=== PATIENT | male | born 1980 | race Two or more races ===

== ENCOUNTER 2019-12-25 09:11 | Outpatient (REF) | payer OTHER, SELFPAY ==
--- NOTE | 2019-12-25 09:51 | ECG_ITS ---
Test Reason : CHEST WALL PAIN Blood Pressure : / mmHG Vent. Rate : 068 BPM Atrial Rate : 068 BPM P-R Int : 146 ms QRS Dur : 102 ms QT Int : 402 ms P-R-T Axes : 057 038 001 degrees QTc Int : 427 ms Normal sinus rhythm with sinus arrhythmia Intra-ventricular conduction delay Nonspecific T wave abnormality Inferior leads Low voltage QRS Abnormal ECG When compared with ECG of 28-FEB-2018 07:43, No significant change was found Referred By: Dawn Kumar Electronically Signed By:GRACE AGUILAR MD
[2019-12-25 10:18] LABS: MANUAL DIFF FLAG NO
[2019-12-25 10:24] LABS: Basophils Percent Auto 0.3 % (0-2); Hematocrit 49.9 % (42-52); Hemoglobin 16.3 g/dl (14.0-18.0); Imm Gran Abs Auto 0.02 X10*3/uL (0.00-0.03); Imm Gran Pct Auto 0.3 % (0.0-0.4); Lymphocytes Absolute Auto 2.7 X10*3/uL (1.2-4.9); Lymphocytes Percent Auto 35.9 % (20-40); Mean Corpuscular HGB Conc 32.7 g/dl (31.0-36.0); Mean Corpuscular Hemoglobin 27.7 pg (27.0-33.0); Mean Corpuscular Volume 84.9 fL (80-98); Mean Platelet Volume 11.1 fL (9.4-12.4); Monocytes Absolute Auto 0.8 X10*3/uL (0.1-1.2); Monocytes Percent Auto 10.2 % (2-11); Neutrophils Percent Auto 53.3 % (45-73); Platelet Count 187 X10*3/uL (160-400); Red Blood Count 5.88 X10*6/uL (4.60-5.80); White Blood Count 7.6 X10*3/uL (4.8-10.8)
[2019-12-25 11:02] LABS: Anion Gap 11 (12-20); Blood Urea Nitrogen 13 mg/dL (9-16); Calcium 9.5 mg/dL (8.4-10.2); Carbon Dioxide 28 mmol/L (22-29); Chloride 103 mmol/L (96-108); Cholesterol 199 mg/dL; Estimated Glomerular Filt Rate > 60; Glucose Fasting 107 mg/dL (60-99); HDL Cholesterol 42 mg/dL; LDL Cholesterol Calculated 125 mg/dl; Potassium 4.2 mmol/l (3.3-5.1); Sodium 138 mmol/L (135-145); Triglycerides 160 mg/dL
== END 2019-12-25 09:12 | disposition home or self-care (01) ==
LOC: HO.LAB 09:11
PROVIDERS: Nurse Practitioner Family; Visit Provider Internal Medicine
DX: E78.2 Mixed hyperlipidemia (principal); R07.89 Other chest pain
CPT/HCPCS: 36415; 80048; 80061; 85025; 93005

== ENCOUNTER → 2019-12-27 08:06 | Outpatient (BNVA) | payer OTHER, SELFPAY | PROVIDERS: PCP Internal Medicine; Visit Provider Internal Medicine | DX: R07.2 Precordial pain (principal); E66.01 Morbid (severe) obesity due to excess calories; Z68.41 Body mass index [BMI] 40.0-44.9, adult | CPT/HCPCS: 99202 ==

== ENCOUNTER → 2020-01-09 09:39 | Outpatient (REF) | payer OTHER, SELFPAY ==
--- NOTE | 2020-01-09 09:47 | CA_ITS ---
Acquisition Time: 2020-01-09 10:55:11 Total Exercise Time: 00:08:53 Test Indications: cp Medications: see chart Protocol: VINCENT Max HR: 173 BPM 96% of Pred: 180 BPM Max BP: 170/090 mmHG Max Work Load: 10.1 METS Exercise stress ECHO using Vincent protocol total of 8 min 53 sec. METS 10.1. THR up to 96%. Tolerated well, denies any anginal sx. EKG without any arrhythmias, no ischemic changes noted. ECHO images obtained at rest and immediately at peak exercise. Definity contrast used. Normotensive response to exercise. Referred By: Ki Pelaez Overread By: Savanna Morfin
--- NOTE | 2020-01-09 09:47 | CA_ITS ---
Transthoracic Echocardiogram Patient (Last, First, Middle): Vinicio Gregory L Gender: Male Date of : 1980 Age: 39 Procedure Date: 01/09/2020 Procedure Type: Transthoracic Echocardiogram Location: OP Height: 177.8 cm Weight: 138.8 kg BSA: 2.50 m2 Heart Rate: bpm BP: 138 / 80 mmHg Molder Operator: Referring MD: Ki Pelaez MD Book Canvasser: Bennett Reina MD Symptoms: R07.2 - Precordial pain Study Quality: Fair ECG Rhythm: Sinus Conclusions: - Essentially normal study Findings Left Ventricle Normal left ventricular size and systolic function. There is mildly increased left ventricular wall thickness. The visually estimated ejection fraction is between 60-65%. Diastolic function is normal for age. Right Ventricle Normal right ventricular cavity size and systolic function. Atria The left atrium is likely dilated. There is no evidence of interatrial shunt. The right atrium is normal in size. Aortic Valve Normal aortic valve structure and function. There is no aortic valve stenosis. There is no aortic valve regurgitation. Mitral Valve Normal mitral valve structure and function. There is trace mitral valve regurgitation. There is no mitral valve stenosis. Pulmonic Valve The pulmonic valve was not well visualized. Tricuspid Valve Normal tricuspid valve structure. There is trace tricuspid valve regurgitation. The right ventricular systolic pressure is normal. The right ventricular systolic pressure is 18 mmHg. Normal right atrial pressure. There is no evidence of pulmonary hypertension. Great Vessels All visible segments of the aorta are normal in size. The pulmonary artery was not well visualized. Venous The inferior vena cava is normal in size and collapses greater than 50% with inspiration. Pericardium/Pleural There is no evidence of pericardial effusion. Prior Study Comparison No change compared to prior study dated: 11/23/2016. Measurements 2D Linear Measurements IVSd: 1.21 0.6-0.9/0.6-1.0 cm LVIDd: 4.41 3.9-5.3/4.2-5.9 cm LVIDd Index: 1.76 2.4-3.2/2.2-3.1 cm/m2 LVIDs: 2.53 2.0-3.6 cm LVPWd: 1.20 0.7-1.1 cm Ao Root: 3.00 2.1-3.5 cm LA Diam: 3.80 2.7-3.8/3.0-4.0 cm LAIDs Index: 1.52 1.5-2.3 cm/m2 LV Mass: 240.71 67-162/88-224 g LV Mass Index: 96.28 43-95/49-115 g/m2 LVOT Diam: 2.20 3.0+(-)1.3 cm Mitral Valve MV Pk E: 0.78 MV PK A: 0.47 MV Decel Time: 162.00 E/A: 1.60 E'Lateral: 18.80 E'Medial: 10.30 E/E' Med: 7.50 E/E' Lat: 4.10 PHT: 47.00 MVA PHT: 4.68 Decel [place]: 4.79 Aortic Valve AoV Pk Rob: 1.38 AoV Mn Rob: 0.93 AoV VTI: 0.27 AoV Pk Grad: 8.00 Aov Mn Grad: 4.00 CHRIS Cont.VTI: 2.50 LVOT LVOT Pk Rob: 0.86 LVOT Mn Rob: 0.62 LVOT VTI: 0.17 LVOT Pk Grad: 3.00 LVOT Mn Grad: 2.00 LVOT Diam: 2.20 LVOT Area: 3.80 Diastolic Function MV Pk E: 0.78 MV Pk A: 0.47 E/A: 1.60 E'Medial: 10.30 E/E' Med: 7.50 E' Laterial: 18.80 E/E' Lat: 4.10 Tricuspid Valve TR Pk Rob: 1.94 TR Pk Grad: 15.00 RA Press: 3.00 RVSP: 18.00 Great Vessels Aorta Ao Root-2D: 3.00 2.0-3.7 cm Ao Asc: 3.20 2.1-3.4 cm Pulmonary Valve PV Pk Rob: 1.21 Peak PV Grad: 6.00 Updated in Other Vendor System with Status of Final Bennett Reina MD electronically signed on 01/10/2020 12:24:54 PM with status of Final
== END ==
LOC: HO.CARD 09:39
PROVIDERS: PCP Internal Medicine; Visit Provider Internal Medicine
DX: R07.2 Precordial pain (principal)
CPT/HCPCS: 93306; 93350; Q9957

== ENCOUNTER 2020-01-12 08:05 | Outpatient (REF) | payer OTHER, SELFPAY ==
--- NOTE | 2020-01-12 08:15 | US_ITS ---
EXAMINATION: US VENOUS ULTRASOUND WITH DOPPLER LOWER EXTREMITY, BILATERAL CLINICAL INFORMATION: Right leg pain. COMPARISON: None TECHNIQUE: Ultrasound of the deep veins is performed from the hip to the calf with compression sonography and color and pulse Doppler assessment. Spectral analysis with color-flow imaging is performed. FINDINGS: RIGHT: There is normal venous compression and respiratory variation and augmented flow. The visualized common femoral vein, superficial femoral vein, profunda femoral vein, popliteal vein, and the trifurcation region shows no evidence of deep venous thrombosis. There is no significant popliteal fossa cyst. The subcutaneous soft tissues are unremarkable. LEFT: There is normal venous compression and respiratory variation and augmented flow. The visualized common femoral vein, superficial femoral vein, profunda femoral vein, popliteal vein, and the trifurcation region shows no evidence of deep venous thrombosis. There is no significant popliteal fossa cyst. The subcutaneous soft tissues are unremarkable. If the patient's symptoms persist, followup ultrasound in 5 days 7 days might be of value to exclude proximal propagation from a non-visualized calf vein. US/US venous duplex LE BI IMPRESSION: No DVT demonstrated in the bilateral lower extremities.
== END 2020-01-12 08:06 | disposition home or self-care (01) ==
LOC: HO.US 08:05
PROVIDERS: PCP Internal Medicine; Visit Provider Nurse Practitioner Family
DX: M79.604 Pain in right leg (principal); M79.605 Pain in left leg
CPT/HCPCS: 93970

== ENCOUNTER → 2020-01-22 13:59 | Outpatient (BNVA) | payer OTHER, SELFPAY | PROVIDERS: PCP Internal Medicine; Referring Provider Internal Medicine; Visit Provider Internal Medicine | DX: Z76.89 Persons encountering health services in other specified circumstances (principal) ==

== ENCOUNTER → 2020-03-11 10:38 | Outpatient (BNVA) | payer OTHER, SELFPAY | PROVIDERS: PCP Internal Medicine; Visit Provider Nurse Practitioner ==

== ENCOUNTER → 2020-08-26 10:50 | Outpatient (BNVA) | payer OTHER, SELFPAY | PROVIDERS: PCP Internal Medicine; Referring Provider Internal Medicine; Visit Provider Nurse Practitioner | DX: K80.20 Calculus of gallbladder without cholecystitis without obstruction (principal); K21.9 Gastro-esophageal reflux disease without esophagitis; E66.01 Morbid (severe) obesity due to excess calories | CPT/HCPCS: 99212 ==

== ENCOUNTER → 2020-10-10 09:19 | Outpatient (BNVA) | payer OTHER, SELFPAY | PROVIDERS: PCP Internal Medicine; Visit Provider Nurse Practitioner ==

== ENCOUNTER 2021-04-14 09:20 | Outpatient (REF) | payer OTHER, SELFPAY ==
[2021-04-14 09:58] LABS: MANUAL DIFF FLAG NO
[2021-04-14 10:27] LABS: Basophils Percent Auto 0.3 % (0-2); Hematocrit 47.7 % (42.0-52.0); Imm Gran Abs Auto 0.03 X10*3/uL (0.00-0.03); Imm Gran Pct Auto 0.4 % (0.0-0.4); Lymphocytes Absolute Auto 2.6 X10*3/uL (1.2-4.9); Lymphocytes Percent Auto 34.5 % (20-40); Mean Corpuscular HGB Conc 33.5 g/dl (31.0-36.0); Mean Corpuscular Hemoglobin 28.4 pg (27.0-33.0); Mean Corpuscular Volume 84.6 fL (80.0-98.0); Mean Platelet Volume 11.6 fL (9.4-12.4); Monocytes Absolute Auto 0.5 X10*3/uL (0.1-1.2); Monocytes Percent Auto 7.2 % (2-11); Neutrophils Absolute Auto 4.3 x10*3/uL (2.0-8.3); Neutrophils Percent Auto 57.6 % (45-73); Platelet Count 195 X10*3/uL (160-400); Red Blood Count 5.64 X10*6/uL (4.60-5.80); Red Cell Distribution Width 12.8 % (11.0-16.0); White Blood Count 7.5 X10*3/uL (4.8-10.8)
[2021-04-14 11:06] LABS: Alanine Aminotransferase 79 U/L (0-40); Albumin Level 4.3 g/dL (3.5-5.0); Alkaline Phosphatase 70 U/L (39-117); Anion Gap 13 (12-20); Aspartate Amino Transferase 50 U/L (5-37); Bilirubin Total 0.5 mg/dL (0.0-1.0); Blood Urea Nitrogen 13 mg/dL (9-16); Calcium 9.7 mg/dL (8.4-10.2); Carbon Dioxide 30 mmol/L (22-29); Chloride 102 mmol/L (96-108); Cholesterol 211 mg/dL; Estimated Glomerular Filt Rate > 60; Glucose Fasting 124 mg/dL (60-99); HDL Cholesterol 41 mg/dL; LDL Cholesterol Calculated 143 mg/dl; Potassium 4.4 mmol/L (3.3-5.1); Sodium 141 mmol/L (135-145); Total Protein 7.1 g/dL (6.5-8.0); Triglycerides 136 mg/dL
[2021-04-14 11:10] LABS: SARS COV2 IgG Positive (Negative); Thyroid Stimulating Hormone 1.44 uIU/mL (0.32-4.0)
[2021-04-18 13:35] LABS: Vitamin D 25-OH, D2 <4 ng/mL; Vitamin D 25-OH, D3 31 ng/mL; Vitamin D 25-OH, Total 31 ng/mL (30-100)
== END 2021-04-14 09:21 | disposition home or self-care (01) ==
LOC: HO.LAB 09:20
PROVIDERS: PCP Internal Medicine; Visit Provider Internal Medicine
DX: E66.01 Morbid (severe) obesity due to excess calories (principal); D64.9 Anemia, unspecified; E78.5 Hyperlipidemia, unspecified; E55.9 Vitamin D deficiency, unspecified
CPT/HCPCS: 36415; 80053; 80061; 82306; 84443; 85025; 86769

== ENCOUNTER → 2021-04-17 07:51 | Outpatient (BNVA) | payer OTHER, SELFPAY | PROVIDERS: PCP Internal Medicine; Referring Provider Internal Medicine; Visit Provider Nurse Practitioner | DX: K80.20 Calculus of gallbladder without cholecystitis without obstruction (principal); K21.9 Gastro-esophageal reflux disease without esophagitis; E66.01 Morbid (severe) obesity due to excess calories; Z68.42 Body mass index [BMI] 45.0-49.9, adult | CPT/HCPCS: 99212 ==

== ENCOUNTER 2021-09-16 09:54 | Outpatient (REF) | payer OTHER, SELFPAY ==
[2021-09-16 11:18] LABS: Alanine Aminotransferase 85 U/L (0-40); Albumin Level 4.2 g/dL (3.5-5.0); Alkaline Phosphatase 71 U/L (39-117); Anion Gap 15 (12-20); Aspartate Amino Transferase 54 U/L (5-37); Bilirubin Total 0.3 mg/dL (0.0-1.0); Blood Urea Nitrogen 14 mg/dL (9-16); Calcium 9.6 mg/dL (8.4-10.2); Carbon Dioxide 27 mmol/L (22-29); Chloride 104 mmol/L (96-108); Cholesterol 228 mg/dL; Estimated Glomerular Filt Rate > 60; Glucose Fasting 150 mg/dL (60-99); HDL Cholesterol 44 mg/dL; LDL Cholesterol Calculated 143 mg/dl; Potassium 4.8 mmol/L (3.3-5.1); Sodium 141 mmol/L (135-145); Total Protein 6.8 g/dL (6.5-8.0); Triglycerides 206 mg/dL
== END 2021-09-16 09:55 | disposition home or self-care (01) ==
LOC: HO.LAB 09:54
PROVIDERS: PCP Internal Medicine; Visit Provider Internal Medicine
DX: E78.5 Hyperlipidemia, unspecified (principal); E78.00 Pure hypercholesterolemia, unspecified
CPT/HCPCS: 36415; 80053; 80061

== ENCOUNTER 2023-02-10 08:30 | Outpatient (AMB) | payer OTHER, SELFPAY ==
--- NOTE | 2023-02-10 08:39 | A.OFFPC_ITS ---
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: No Accompanied by: Self / Same As Patient Allergies No Known Allergies [No Known Allergies*] Allergy (Verified 02/10/23 08:51) Medication List - Last Reconciled 02/10/23 by Dawn Kumar MD omeprazole 20 mg PO DAILY 30 days sertraline 25 mg PO DAILY 90 days Tobacco use date assessed: 07/16/22 Dental Screening Dental Screen Date: 02/10/23 Did you have a dental visit in the last 12 months?: No Did you have a dental problem in the last 6 months where you did not have access to dental care?: No Was dental information given to patient?: Patient has dentist HPI HPI Comments History of Present Illness Details This is a 42-year-old male with morbid obesity that comes for his physical exam. He is morbidly obese with a BMI of 47.1 and was advised to diet and exercise to reach BMI goal less than 30. He declines weight loss surgery. No chest pain or shortness of breath. [facility] Medical History Transaminitis Pure hypercholesterolemia Impaired glucose tolerance Morbid obesity Surgical History History of tooth extraction (~11/2014) Family History Father Hepatitis C Chronic liver failure Mother Renal failure Brother Alive and well Sister Alive and well Son Alive and well Family/Other Substance use disorder Social History Housing: House Alcohol intake: former Patient Tobacco Use Status: Former Tobacco user Tobacco use type: Cigarette e-Cigarette/Vaping Use: Never Used Second Hand Smoke Exposure: No service: No Current occupational status: employed Current occupational exposures/hazards: No Cognitive needs: No Hearing needs: No Vision needs: Yes Questionnaire Thrive Questionnaire Date Thrive assessed: 07/16/22 ZACK-7 AMB Questionnaire ZACK-7 Date ZACK - 7 assessed: 07/16/22 Source: Developed by Drs. Jag Gamez, Edda Grace, Sam Sotomayor and colleagues, with an educational tom from [employer]. Review of Systems Const All systems reviewed & are unremarkable except as noted in HPI and below Eyes Reports no additional complaints, Denies change in vision and Denies other visual disturbances Card Denies chest pain at rest, Denies chest pain with activity, Denies edema, Denies irregular heart rhythm, Denies claudication, Denies dyspnea, Denies dyspnea on exertion, Denies orthopnea, Denies paroxysmal nocturnal dyspnea and Denies slow heart rate Resp Denies cough, Denies dyspnea and Denies dyspnea on exertion GI Denies abdominal pain, Denies change in bowel habits, Denies excessive flatus, D enies nausea and Denies vomiting Denies urinary hesitancy, Denies urinary incontinence and Denies urinary urgency Musc Denies abnormal gait, Denies atrophy, Denies deformity and Denies limited range of motion Skin/Breast Denies bleeding lesions, Denies changing lesions and Denies rash Neuro Denies abnormal gait, Denies behavioral changes, Denies confusion and Denies lack of coordination Psych Denies behavioral changes and Denies confusion Physical exam (Primary Care) Vital Signs: Last Vital Signs BP 122/86 02/10/23 08:40 BMI result Body Mass Index 47.1 Tobacco/Smoking Status: Tobacco use Status Tobacco use date assessed 07/16/22 02/10/23 08:43 Patient Tobacco Use Status Former Tobacco user 02/10/23 08:43 Tobacco use type Cigarette 02/10/23 08:43 e-Cigarette/Vaping Use Never Used 02/10/23 08:43 Thrive Assessment: Date of Thrive Assessment Date Thrive assessed 07/16/22 02/10/23 08:43 Const General: No confusion Orientation/consciousness: patient oriented x3 and No confusion HENMT Head: Yes normal to inspection, Yes normocephalic and Yes atraumatic Ears: external ears normal Eyes General: appearance normal, both eyes and all related structures Eyelids: Yes eyelids normal Conjunctivae: conjunctivae normal Neck Neck: Yes normal visual inspection and Yes supple Resp Effort & Inspection: normal respiratory effort Auscultation: clear to auscultation bilaterally Cardio Jugular venous distension: no JVD Rate: regular rate Rhythm: regular rhythm Heart sounds: S1 normal heart sound present and S2 normal heart sound present GI Inspection: Yes normal to inspection Palpation (GI): Soft to palpation and nontender Auscultation: normal bowel sounds Skin General skin exam: no rashes or lesions noted Neuro General: patient oriented x3, no focal motor deficits and No confusion Extrem General: Yes full ROM Psych Appearance: grossly normal Office Procedures Flu Questionnaire Does the patient have a severe egg allergy?: No Immunizations flu vacc [id number] 6mos up(PF) 60 mcg(15 mcgx4)/0.5 mL IM syringe Performing Provider: Dawn Kumar MD Performing Location: [facility] Documented (not given) by: KAELA Schmid on 02/10/23 08:44 Reason Not Given: Patient Refused Assessment and Plan Assessment & Plan (1) Physical exam: Code(s): Z00.00 - Encounter for general adult medical examination without abnormal findings Plan: Repeat in a year. (2) Morbid obesity: Code(s): E66.01 - Morbid (severe) obesity due to excess calories Plan: Start diet and exercise. BMI goal is less than 30. Orders: Orders Comprehensive [place]. Panel Fast Today Z00.00 - Encounter for general adult medical examination without abnormal findings Influenza [id number] Immunization Today Z23 - Encounter for immunization Lipid Panel Today E78.5 - Hyperlipidemia, unspecified, Z00.00 - Encounter for general adult medical examination without abnormal findings Coding Level of Care Code Est Pt Prev Care 40-64y(92474) Diagnoses Physical exam Z00.00 Morbid obesity E66.01 Time Spent (min) 31
[2023-02-10 08:40] VITALS: BP 122/86; BMI 47.1
== END 2023-02-10 09:00 | disposition home or self-care (01) ==
PROVIDERS: Visit Provider Internal Medicine
DX: Z00.00 Encounter for general adult medical examination without abnormal findings (principal); E66.01 Morbid (severe) obesity due to excess calories; Z68.42 Body mass index [BMI] 45.0-49.9, adult
CPT/HCPCS: 99396

== ENCOUNTER 2023-03-12 23:59 | Emergency (ER) | payer OTHER, SELFPAY ==
[2023-03-13 00:02] VITALS: BP 143/81; PULSE 79; RESP 17; TEMP 36.3; O2SAT 96; BMI 48.0
[2023-03-13 00:26] LABS: Glucose, Whole Blood 303 mg/dL (60-115)
[2023-03-13 00:29] LABS: Hematocrit 44.1 % (42.0-52.0); Hemoglobin 15.1 g/dl (14.0-18.0); Mean Corpuscular HGB Conc 34.2 g/dl (31.0-36.0); Mean Corpuscular Hemoglobin 28.3 pg (27.0-33.0); Mean Corpuscular Volume 82.6 fL (80.0-98.0); Mean Platelet Volume 11.5 fL (9.4-12.4); Platelet Count 183 X10*3/uL (160-400); Red Blood Count 5.34 X10*6/uL (4.60-5.80); Red Cell Distribution Width 12.6 % (11.0-16.0); White Blood Count 8.6 X10*3/uL (4.8-10.8)
--- NOTE | 2023-03-13 00:34 | ED.GENADULT ---
HPI - General Adult General Chief complaint: General Medical Stated complaint: ?Hyperglycemia Time Seen by Provider: 03/13/23 00:34 Source: patient Mode of arrival: ambulatory Limitations: no limitations History of Present Illness HPI narrative: Patient with no significant past medical history has gained about 100 lb in last 1 year been feeling little bit after rechecked the blood sugar was 187, repeat 282 and just prior to arrival was 308 guarding 2 patient has been eating a lot lately no abdominal pain no nausea no vomiting no visual changes no family history of diabetes no recent prednisone use Related Data Previous Rx's Medication Instructions Recorded omeprazole 20 mg capsule,delayed 20 mg PO DAILY 30 days #30 caps 04/17/21 release sertraline 25 mg tablet 25 mg PO DAILY 90 days #90 tabs 12/28/22 blood-glucose meter #1 ea 03/13/23 metformin 500 mg tablet 500 mg PO BID #60 tabs 03/13/23 Allergies Allergy/AdvReac Type Severity Reaction Status Date / Time No Known Allergies Allergy Verified 03/13/23 00:01 [No Known Allergies*] Review of Systems Review of Systems: Yes all other systems are reviewed and are negative [facility] Past Medical History Medical History Transaminitis Pure hypercholesterolemia Impaired glucose tolerance Morbid obesity Surgical History History of tooth extraction (~11/2014) Family History Family History Father Hepatitis C Chronic liver failure Mother Renal failure Brother Alive and well Sister Alive and well Son Alive and well Family/Other Substance use disorder Social History Social History Housing: House Alcohol intake: former Patient Tobacco Use Status: Former Tobacco user Tobacco use type: Cigarette e-Cigarette/Vaping Use: Never Used Second Hand Smoke Exposure: No Advance Directives: No Advance Directives Information Provided: Yes service: No Current occupational status: employed Current occupational exposures/hazards: No Cognitive needs: No Hearing needs: No Vision needs: Yes Physical Exam ED Vital Signs: Vital Signs - 24 hr 03/13/23 00:02 Temperature 97.3 F Pulse Rate 79 Respiratory Rate 17 Blood Pressure 143/81 H Pulse Oximetry 96 Oxygen Delivery Method Room Air BMI result Body Mass Index 48.0 Appearance: Alert. Oriented X3. No acute distress. Obese Eyes: PERRLA, No Nystagmus ENT: Pharynx normal. Oral Mucosa moist Neck: Normal inspection. Neck supple. CVS: Normal heart rate and rhythm. Pulses normal. Respiratory: No respiratory distress. Equal air entry bilateral, no wheezing/rales/rhonchi Abdomen: Soft and nontender. Bowel sounds are present, Skin: Skin warm and dry. Normal skin color. Normal skin turgor. Extremities: No lower extremity edema.; Neuro: Oriented X 3. No motor deficit. Medications Administered Discontinued Medications Generic Name Dose Route Start Last Admin Trade Name Freq PRN Reason Stop Dose Admin Insulin Human Lispro 6 unit 03/13/23 00:43 03/13/23 01:03 Insulin Lispro 100 Unit/Ml 3 Ml Vial SUBCUT 03/13/23 00:44 6 unit ONCE ONE Administration Medical Decision Making Medical Decision Making [facility] Narrative: Patient with new onset diabetes blood sugar more than 300 started on metformin give insulin , patient been educated about diabetes , diet control and weight loss advised to follow with PCP Lab Data [facility] Lab Attestation statement: I reviewed the patient's lab results. 03/13/23 00:21 03/13/23 00:21 Labs: Lab Results 03/13/23 03/13/23 Range/Units 00:21 01:52 WBC 8.6 (4.8-10.8) X10*3/uL RBC 5.34 (4.60-5.80) X10*6/uL Hgb 15.1 (14.0-18.0) g/dl Hct 44.1 (42.0-52.0) % MCV 82.6 (80.0-98.0) fL MCH 28.3 (27.0-33.0) pg MCHC 34.2 (31.0-36.0) g/dl RDW 12.6 (11.0-16.0) % Plt Count 183 (160-400) X10*3/uL MPV 11.5 (9.4-12.4) fL Absolute Nucleated RBC 0.000 (0.0-0.012) X10*3/uL Nucleated RBC % (auto) 0.0 (0.0-0.2) /100WBC Sodium 137 (135-145) mmol/L Potassium 3.8 (3.3-5.1) mmol/L Chloride 101 (96-108) mmol/L Carbon Dioxide 27 (22-29) mmol/L Anion Gap 13 (12-20) BUN 11 (9-16) mg/dL Creatinine 1.02 (0.5-1.4) mg/dL Estim Creat Clear Calc 138.1 Estimated GFR > 60 POC Glucose 303 H 302 H (60-115) mg/dL Random Glucose 315 H (60-115) mg/dL Calcium 9.6 (8.4-10.2) mg/dL Total Bilirubin 0.4 (0.0-1.0) mg/dL AST 96 H (5-37) U/L ALT 167 H (0-40) U/L Alkaline Phosphatase 91 (39-117) U/L Total Protein 7.0 (6.5-8.0) g/dL Albumin 3.9 (3.5-5.0) g/dL Discharge Plan Discharge Clinical Impression: 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, new onset Patient Disposition: Home, Self-Care Instructions: Type 2 Diabetes in Adults: New Diagnosis (DC) Additional Instructions: Drink plenty of fluids Exercise try to with lose weight Diet as advised Start taking metformin 1 tablet twice daily Check your sugar daily should be less than 200 Prescriptions: New metformin 500 mg tablet 500 mg PO BID Qty: 60 2RF (DME) blood-glucose meter Kit See Rx Instructions .Route Qty: 1 0RF Rx Instructions: As directed No Action sertraline 25 mg tablet 25 mg PO DAILY 90 Days Qty: 90 1RF omeprazole 20 mg capsule,delayed release(DR/EC) 20 mg PO DAILY 30 Days Qty: 30 6RF
[2023-03-13 00:39] LABS: Alanine Aminotransferase 167 U/L (0-40); Albumin Level 3.9 g/dL (3.5-5.0); Alkaline Phosphatase 91 U/L (39-117); Anion Gap 13 (12-20); Aspartate Amino Transferase 96 U/L (5-37); Bilirubin Total 0.4 mg/dL (0.0-1.0); Blood Urea Nitrogen 11 mg/dL (9-16); Calcium 9.6 mg/dL (8.4-10.2); Carbon Dioxide 27 mmol/L (22-29); Chloride 101 mmol/L (96-108); Creatinine Clr Calc Pharmacy 138.1; Estimated Glomerular Filt Rate > 60; Glucose Random 315 mg/dL (60-115); Potassium 3.8 mmol/L (3.3-5.1); Sodium 137 mmol/L (135-145)
[2023-03-13] MEDS: Insulin Lispro 100 UNIT/ML 3 ML VIAL 6 UNIT SUBCUT (01:03)
[2023-03-13 01:55] LABS: Glucose, Whole Blood 302 mg/dL (60-115)
[2023-03-13] MEDS: metFORMIN HCl 500 MG TABLET PO (02:11)
[2023-03-13 10:30] LABS: Estimated Average Glucose 235 mg/dL; Hemoglobin A1c % 9.8 % (<6.0)
== END 2023-03-13 02:35 | disposition home or self-care (01) ==
PROVIDERS: Emergency Provider Internal Medicine; PCP Internal Medicine
DX: E11.9 Type 2 diabetes mellitus without complications (principal)
CPT/HCPCS: 36415; 80053; 82947; 83036; 85027; 99284

== ENCOUNTER 2023-03-17 10:55 | Outpatient (AMB) | payer OTHER, SELFPAY ==
--- NOTE | 2023-03-17 11:02 | A.OFFPC_ITS ---
Vital Signs 03/17/23 11:03 Height 5 ft 10 in Weight 323 lb BMI 46.3 BP 122/86 Blood Pressure Location Lt brachial Position Sitting Intake Visit Reasons: [facility] 03/13 elevated blood glucose Intake Note: Patient here for [facility] follow up elevated blood glucose Supervisor Purification Required: No Accompanied by: Self / Same As Patient Allergies No Known Allergies [No Known Allergies*] Allergy (Verified 03/17/23 11:11) Medication List - Last Reconciled 03/17/23 by Dawn Kumar MD blood-glucose meter As directed metformin 500 mg PO BID omeprazole 20 mg PO DAILY 30 days sertraline 25 mg PO DAILY 90 days Tobacco use date assessed: 03/17/23 Dental Screening Dental Screen Date: 03/17/23 Did you have a dental visit in the last 12 months?: No Did you have a dental problem in the last 6 months where you did not have access to dental care?: No Was dental information given to patient?: Patient has dentist HPI HPI Comments History of Present Illness Details This is a 42 year male with pure hypercholesterolemia, morbid obesity and GERD that is here for hospital discharge follow-up with discharge date 03/13/2023 due to newly diagnosed diabetes mellitus. He was complaining of a hea dache and took blood glucose at home and was 187 and then repeated and it was in the 200s. When he went to ER it was over 300. He denies any polyuria or polydipsia. At the moment his fasting blood glucose is in the 180s and in the 120s in the afternoon. Last cholesterol was elevated and lipid panel will be repeated. His LDL goal should be less than 70. He is morbidly obese with a BMI of 46.3 and declines weight loss surgery. Will be referred to a [facility] [employer]. GERD stable with PPIs. No chest pain or shortness of breath. [facility] Medical History (Updated 03/17/23 @ 11:35 by Dawn Kumar MD) Transaminitis Pure hypercholesterolemia Impaired glucose tolerance Morbid obesity Surgical History History of tooth extraction (~11/2014) Family History Father Hepatitis C Chronic liver failure Mother Renal failure Brother Alive and well Sister Alive and well Son Alive and well Family/Other Substance use disorder Social History Housing: House Alcohol intake: former Patient Tobacco Use Status: Former Tobacco user Tobacco use type: Cigarette e-Cigarette/Vaping Use: Never Used Second Hand Smoke Exposure: No service: No Current occupational status: employed Current occupational exposures/hazards: No Cognitive needs: No Hearing needs: No Vision needs: Yes Questionnaire PHQ-9 Over the last 2 weeks, how often have you been bothered by any of the following problems? 1. Little interest or pleasure in doing things: not at all 2. Feeling down, depressed, or hopeless: not at all 3. Trouble falling or staying asleep, or sleeping too much: not at all 4. Feeling tired or having little energy: not at all 5. Poor appetite or overeating: not at all 6. Feeling bad about yourself - or that you are a failure or have let yourself or your family down: not at all 7. Trouble concentrating on things, such as reading the newspaper or watching television: not at all 8. Moving or speaking so slowly that other people could have noticed. Or the opposite - being so fidgety or restless that you have been moving around a lot more than usual: not at all 9. Thoughts that you would be better off or of hurting yourself in some way: not at all Total score: 0 Depression Screening Interpretation: Negative Depression Screening Done: Yes 61311 - PHQ-9 Billing: Yes Source: Developed by Drs. Jag Gamez, Edda Grace, Sam Sotomayor and colleagues, with an educational tom from [employer]. Thrive Questionnaire Date Thrive assessed: 03/17/23 I am a: Patient What is your living situation today?: I have a steady place to live Within the past 12 months, did the food you bought not last and you didn't have the money to get more?: Never true Within the past 12 months, did you worry whether your food would run out before you got money to buy more?: Never true Do you have trouble paying for medicines?: No Do you have trouble getting transportation to medical appointments?: No Do you have trouble paying your heating and electricity bill?: No Do you have trouble taking care of your child, family member or friend?: No Do you have trouble with day-to-day activities such as bathing, preparing meals, shopping, managing finances, etc.?: No Are you currently unemployed and looking for a job?: No Are you interested in more education?: No Please select the resources that you would like help with: None Currently or been in a relationship where the following occur: no concerns reported THRIVE Score: 0 AUDIT C Alcohol Use Questionnaire (AUDIT-C) 1. How often do you have a drink containing alcohol?: Never Total Score: 0 ZACK-7 AMB Questionnaire ZACK-7 Date ZACK - 7 assessed: 03/17/23 Feeling nervous, anxious, or on edge: 0 = Not at all Not being able to stop or control worryin = Not at all Worrying too much about different things: 0 = Not at all Trouble relaxin = Not at all Being so restless that it is hard to sit still: 0 = Not at all Becoming easily annoyed or irritable: 0 = Not at all Feeling afraid as if something awful might happen: 0 = Not at all Total ZACK-7 score (0-4 normal; 5-9 mild; 10-14 moderate; 15-21 severe): 0 Source: Developed by Drs. Jag Gamez, Edda Grace, Sam Sotomayor and colleagues, with an educational tom from [employer]. ZACK-7 Assessment Billing ZACK-7 Assessment Tool: ZACK-7 Assessment 81196 Review of Systems Const All systems reviewed & are unremarkable except as noted in HPI and below Eyes Reports no additional complaints, Denies change in vision and Denies other visual disturbances Card Denies chest pain at rest, Denies chest pain with activity, Denies edema, Denies irregular heart rhythm, Denies claudication, Denies dyspnea, Denies dyspnea on exertion, Denies orthopnea, Denies paroxysmal nocturnal dyspnea and Denies slow heart rate Resp Denies cough, Denies dyspnea and Denies dyspnea on exertion GI Denies abdominal pain, Denies change in bowel habits, Denies excessive flatus, Denies nausea and Denies vomiting Denies urinary hesitancy, Denies urinary incontinence and Denies urinary urgency Musc Denies abnormal gait, Denies atrophy, Denies deformity and Denies limited range of motion Skin/Breast Denies bleeding lesions, Denies changing lesions and Denies rash Neuro Denies abnormal gait, Denies behavioral changes and Denies lack of coordination Psych Denies behavioral changes Physical exam (Primary Care) Vital Signs: Last Vital Signs BP 122/86 03/17/23 11:03 BMI result Body Mass Index 46.3 Tobacco/Smoking Status: Tobacco use Status Tobacco use date assessed 03/17/23 03/17/23 11:08 Patient Tobacco Use Status Former Tobacco user 03/17/23 11:08 Tobacco use type Cigarette 03/17/23 11:08 e-Cigarette/Vaping Use Never Used 03/17/23 11:08 PHQ-9: PHQ-9 Score PHQ-9: Total score 0 03/17/23 11:08 Depression Screening Interpretation: Negative Thrive Assessment: Date of Thrive Assessment Date Thrive assessed 03/17/23 03/17/23 11:08 Currently or been in a relationship where the following occur: no concerns reported Eyes General: appearance normal, both eyes and all related structures Eyelids: Yes eyelids normal Conjunctivae: conjunctivae normal Neck Neck: Yes normal visual inspection and Yes supple Resp Effort & Inspection: normal respiratory effort Auscultation: clear to auscultation bilaterally Cardio Jugular venous distension: no JVD Rate: regular rate Rhythm: regular rhythm Heart sounds: S1 normal heart sound present and S2 normal heart sound present Extrem General: Yes full ROM Psych Appearance: grossly normal Assessment and Plan Assessment & Plan (1) Hospital discharge follow-up: Code(s): Z09 - Encounter for follow-up examination after completed treatment for conditions other than malignant neoplasm Plan: Discharge date 03/13/2023 due to elevated blood glucose. A1c was done and a was not within goal. Metformin was started. Headache resolved. Blood glucose has been better. (2) 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: Code(s): E11.9 - Type 2 diabetes mellitus without complications Qualifiers: 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 type: type 2 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 terminologist insulin use: without custodial use 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 complication status: with hyperglycemia Qualified Code(s): E11.65 - Type 2 diabetes mellitus with hyperglycemia Plan: Continue metformin. A1c goal is equal or less than 7%. (3) Morbid obesity: Code(s): E66.01 - Morbid (severe) obesity due to excess calories Plan: Referred to [employer]. Start diet and exercise. BMI goal is less than 30. (4) GERD (gastroesophageal reflux disease): Code(s): K21.9 - Gastro-esophageal reflux disease without esophagitis Plan: Continue PPIs. (5) Pure hypercholesterolemia: Code(s): E78.00 - Pure hypercholesterolemia, unspecified Plan: Repeat lipid panel. LDL goal is less than 70. Orders: Orders Insulin Auto Antibody Today E11.9 - Type 2 diabetes mellitus without complications Glutamic acid decarboxylase Ab Today E11.9 - Type 2 diabetes mellitus without complications Lipid Panel Today E78.5 - Hyperlipidemia, unspecified Microalbumin, Random (w Creat) Today E11.9 - Type 2 diabetes mellitus without complications Comprehensive [place]. Panel Fast Today E11.9 - Type 2 diabetes mellitus without complications Coding Level of Care Code TCM Mod MDM <= 7 Days Diagnoses Hospital discharge follow-up Z09 Type 2 diabetes mellitus with hyperglycemia, without long-term current use of insulin E11.65 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 type: type 2 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 terminologist insulin use: without terminologist use 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 complication status: with hyperglycemia Morbid obesity E66.01 GERD (gastroesophageal reflux disease) K21.9 Pure hypercholesterolemia E78.00 Additional Codes ZACK-7 Assessment Billing - ZACK-7 Assessment Tool: ZACK-7 Assessment 79934 ([id number]) Time Spent (min) 23
[2023-03-17 11:03] VITALS: BP 122/86; BMI 46.3
== END 2023-03-17 11:22 | disposition home or self-care (01) ==
PROVIDERS: PCP Internal Medicine; Visit Provider Internal Medicine
DX: E11.65 Type 2 diabetes mellitus with hyperglycemia (principal); E66.01 Morbid (severe) obesity due to excess calories; Z68.43 Body mass index [BMI] 50.0-59.9, adult; K21.9 Gastro-esophageal reflux disease without esophagitis; E78.00 Pure hypercholesterolemia, unspecified
CPT/HCPCS: 99213

== ENCOUNTER 2023-04-15 08:24 | Outpatient (AMB) | payer OTHER, SELFPAY ==
--- NOTE | 2023-04-15 08:40 | A.OFFVIS_ITS ---
Intake VS Expanded 04/15/23 08:41 04/15/23 09:12 Height 5 ft 10 in 5 ft 10 in Weight 324 lb 8.327 oz 324 lb BMI 46.6 46.5 Intake Visit Reasons: DM2, Obesity/LVM Allergies No Known Allergies [No Known Allergies*] Allergy (Verified 03/17/23 11:11) HPI Nutrition Presentation Details Pt presents for MNT for T2DM and morbid obesity. Patient was referred by primary care provider, Dr. Joya Patient reports working on having 3 meals per day 9:00-9:30 scrambled eggs, ham, crackers, or slice bread 12:00 soup (ham/moodles/potato) ,water 7 pm: rice/avocado/ beef,water etoh: denies smoking: denies physical activity : sedentary Fried foods 2-3 times per week Fruits 0-1 per day Vegetables: 0 Fish: 0 Dairy: Typically cheese ZVZ-Ijlffmm-Qq.Jeor Equation Height 5 ft 10 in Weight 324 lb Resting Metabolic Rate 2372.86 Calculated Activity Level Sedentary Calories Needed to Maintain Weight 2847.43 Diagnosis Nutrition problem #1 food nutri know defi As related to (etiology) #1 diagnosis As evidenced by (sign/symptom) #1 high BMI (BMI at 46.5 on March 2023) and knowledge deficit of diet Monitoring/Goals Nutrition problem monitoring HgbA1c, level of knowledge/skill, total PRO intake, total CHO intake, weight and oral fluids Nutrition goal/outcome list 3 CHO foods, wt loss 5lbs in 2 months and list 3 high fiber foods Outcome progress verbalized understanding Learning/Education Readiness to learn good Stages of change preparation Educational materials provided Yes (Meal planning) Most Recent Diabetes Results: Cholesterol 228 mg/dL 09/16/21 HDL Cholesterol 44 mg/dL 09/16/21 Triglycerides 206 mg/dL 09/16/21 Creatinine 1.02 mg/dL (0.5-1.4) 03/13/23 Blood Urea Nitrogen 11 mg/dL (9-16) 03/13/23 Sodium 137 mmol/L (135-145) 03/13/23 Potassium 3.8 mmol/L (3.3-5.1) 03/13/23 Chloride 101 mmol/L (96-108) 03/13/23 Carbon Dioxide 27 mmol/L (22-29) 03/13/23 Calcium 9.6 mg/dL (8.4-10.2) 03/13/23 AST 96 U/L (5-37) H 03/13/23 ALT 167 U/L (0-40) H 03/13/23 Total Protein 7.0 g/dL (6.5-8.0) 03/13/23 Albumin 3.9 g/dL (3.5-5.0) 03/13/23 [facility] Medical History (Updated 04/22/23 @ 09:[address], LDN) Transaminitis Pure hypercholesterolemia Impaired glucose tolerance Morbid obesity Surgical History History of tooth extraction (~11/2014) Family History Father Hepatitis C Chronic liver failure Mother Renal failure Brother Alive and well Sister Alive and well Son Alive and well Family/Other Substance use disorder Social History Housing: House Alcohol intake: former Patient Tobacco Use Status: Former Tobacco user Tobacco use type: Cigarette e-Cigarette/Vaping Use: Never Used Second Hand Smoke Exposure: No service: No Current occupational status: employed Current occupational exposures/hazards: No Cognitive needs: No Hearing needs: No Vision needs: Yes Assessment & Plan Assessment & Plan (1) 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: Comment: Patient also has morbid obesity with BMI at 46.5 on March 2023 Code(s): E11.9 - Type 2 diabetes mellitus without complications Qualifiers: 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 type: type 2 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 superintendent container terminal insulin use: without superintendent container terminal use 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 complication status: with hyperglycemia Qualified Code(s): E11.65 - Type 2 diabetes mellitus with hyperglycemia Plan: Wt: 147Kg ( March 2023 ) Est kcal needs as per MSJ: 2600 (40% carb, 30% protein/fat) Est fluid needs as per 30 ml/d: 4400 Est prot per day as per 1 g/kg bw: 147 Recommend fiber intake : 8-10 g per day and gradually increase to 25-28 g per day for women and 35-38 g for men or as tolerated Recommend sodium intake per day : less than 2000 mg Educated patient on: ( R = reviewed V = verbalizes understanding N/R = needs review N/A = not applicable * Food sources of carbohydrate, adequate serving sizes and its role in various health conditions: R * Differences between complex carbohydrates a simple carbohydrates, role of fiber in diet: R * Lean protein sources of foods: R * Differences between types of fats and role in diet (mono on saturated fat fatty acids, saturated fatty acids, trans fats): R basic info * Food sources of sodium in salt and healthy modifications for heart health in kidney health: N/R * Vitamins and minerals: R V N/R * Healthy plate method concept: R * Physical activity: Benefits a precaution: N/R * Hypoglycemia protocol (rule of 15): N/R * Dietary prevention of Hyperglycemia: R Patient Instructions: Work on practicing mindful eating Work on reducing total carbohydrates to less than 90 at meals following healthy plate method Keep hydrated by having water with her meals Choose a fruit instead of pastries up to 4 fruits a day Coding Level of Care Code Nutr Indiv Subseq ([id number]) Diagnoses Type 2 diabetes mellitus with hyperglycemia, without long-term current use of insulin E11.65 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 type: type 2 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 longterm insulin use: without longterm use 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 complication status: with hyperglycemia Time Spent (min) 30
[2023-04-15 08:41] VITALS: BMI 46.6
[2023-04-22 09:13] VITALS: BMI 46.5
== END 2023-04-15 09:22 | disposition home or self-care (01) ==
PROVIDERS: PCP Internal Medicine; Visit Provider Dietitian, Registered
DX: E11.65 Type 2 diabetes mellitus with hyperglycemia (principal)

== ENCOUNTER → 2023-04-15 08:24 | Outpatient (BNVA) | payer OTHER, SELFPAY | PROVIDERS: PCP Internal Medicine; Visit Provider Dietitian, Registered | DX: E11.65 Type 2 diabetes mellitus with hyperglycemia (principal); E66.01 Morbid (severe) obesity due to excess calories; Z68.43 Body mass index [BMI] 50.0-59.9, adult | CPT/HCPCS: 97803 ==

== ENCOUNTER 2023-05-26 08:27 | Outpatient (AMB) | payer OTHER, SELFPAY ==
--- NOTE | 2023-05-26 08:28 | A.OFFVIS_ITS ---
Intake VS Expanded 05/26/23 08:31 Height 5 ft 10 in Weight 321 lb BMI 46.1 Intake Visit Reasons: t2DM Allergies No Known Allergies [No Known Allergies*] Allergy (Verified 03/17/23 11:11) HPI Nutrition Presentation Details Pt presents for MNT f/u for T2DM Pt reports working on diet modifications Did not bring glucometer ot this appt Most Recent Diabetes Results: Cholesterol 228 mg/dL 09/16/21 HDL Cholesterol 44 mg/dL 09/16/21 Triglycerides 206 mg/dL 09/16/21 Creatinine 1.02 mg/dL (0.5-1.4) 03/13/23 Blood Urea Nitrogen 11 mg/dL (9-16) 03/13/23 Sodium 137 mmol/L (135-145) 03/13/23 Potassium 3.8 mmol/L (3.3-5.1) 03/13/23 Chloride 101 mmol/L (96-108) 03/13/23 Carbon Dioxide 27 mmol/L (22-29) 03/13/23 Calcium 9.6 mg/dL (8.4-10.2) 03/13/23 AST 96 U/L (5-37) H 03/13/23 ALT 167 U/L (0-40) H 03/13/23 Total Protein 7.0 g/dL (6.5-8.0) 03/13/23 Albumin 3.9 g/dL (3.5-5.0) 03/13/23 [facility] Medical History (Updated 05/26/23 @ 08:42 by Kacy Perez, RD, LDN) Transaminitis Pure hypercholesterolemia Impaired glucose tolerance Morbid obesity Surgical History History of tooth extraction (~11/2014) Family History Father Hepatitis C Chronic liver failure Mother Renal failure Brother Alive and well Sister Alive and well Son Alive and well Family/Other Substance use disorder Social History Housing: House Alcohol intake: former Patient Tobacco Use Status: Former Tobacco user Tobacco use type: Cigarette e-Cigarette/Vaping Use: Never Used Second Hand Smoke Exposure: No service: No Current occupational status: employed Current occupational exposures/hazards: No Cognitive needs: No Hearing needs: No Vision needs: Yes Assessment & Plan Assessment & Plan (1) 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: Comment: Patient also has morbid obesity with BMI at 46.5 on March 2023, 05/2023 46.1 Code(s): E11.9 - Type 2 diabetes mellitus without complications Qualifiers: 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 type: type 2 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 director of managed services insulin use: without director of managed services use 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 complication status: with hyperglycemia Qualified Code(s): E11.65 - Type 2 diabetes mellitus with hyperglycemia Plan: Wt: 147Kg ( March 2023 ) Est kcal needs as per MSJ: 2600 (40% carb, 30% protein/fat) Est fluid needs as per 30 ml/d: 4400 Est prot per day as per 1 g/kg bw: 147 Recommend fiber intake : 8-10 g per day and gradually increase to 25-28 g per day for women and 35-38 g for men or as tolerated Recommend sodium intake per day : less than 2000 mg Educated patient on: ( R = reviewed V = verbalizes understanding N/R = needs review N/A = not applicable * Food sources of carbohydrate, adequate serving sizes and its role in various health conditions: R * Differences between complex carbohydrates a simple carbohydrates, role of fiber in diet: R * Lean protein sources of foods: R * Differences between types of fats and role in diet (mono on saturated fat fatty acids, saturated fatty acids, trans fats): R, V * Food sources of sodium in salt and healthy modifications for heart health in kidney health: N/R * Vitamins and minerals: R V N/R * Healthy plate method concept: R * Physical activity: Benefits a precaution: N/R * Hypoglycemia protocol (rule of 15): N/R * Dietary prevention of Hyperglycemia: R Patient Instructions: * Continue working on reducing on saturated fats and sugary (pastries, cheese, fried foods ) * Follow healthy plate method * Engage in physical activity , goal walk 20-30 minutes daily * goal 5-6 lbs less by next f/u Coding Level of Care Code Nutr Indiv Subseq (08019) Diagnoses Type 2 diabetes mellitus with hyperglycemia, without long-term current use of insulin E11.65 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 type: type 2 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 director of managed services insulin use: without director of managed services use 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 complication status: with hyperglycemia Time Spent (min) 30
[2023-05-26 08:31] VITALS: BMI 46.1
== END 2023-05-26 09:03 | disposition home or self-care (01) ==
PROVIDERS: PCP Internal Medicine; Visit Provider Dietitian, Registered
DX: E11.65 Type 2 diabetes mellitus with hyperglycemia (principal)

== ENCOUNTER → 2023-05-26 08:27 | Outpatient (BNVA) | payer OTHER, SELFPAY | PROVIDERS: PCP Internal Medicine; Visit Provider Dietitian, Registered | DX: E11.65 Type 2 diabetes mellitus with hyperglycemia (principal) | CPT/HCPCS: 97803 ==

== ENCOUNTER 2023-07-14 08:57 | Outpatient (AMB) | payer OTHER, SELFPAY ==
[2023-07-14 09:06] VITALS: BMI 45.5
--- NOTE | 2023-07-14 09:06 | A.OFFVIS_ITS ---
VS Expanded 07/14/23 09:06 Height 5 ft 10 in Weight 317 lb 0.395 oz BMI 45.5 Intake Visit Reasons: T2DM/LVM Allergies No Known Allergies [No Known Allergies*] Allergy (Verified 07/20/23 08:37) Nutrition Presentation Details: Pt presents for MNT f/u for T2DM Beverages: water or juice in AM Pt reports having 3 meals a day , working on following healthy plate method, reducing on portions gradually. walkin minutes 3 times/wk BS Monitoring Most Recent Diabetes Results: Cholesterol 228 mg/dL 09/16/21 HDL Cholesterol 44 mg/dL 09/16/21 Triglycerides 206 mg/dL 09/16/21 Creatinine 1.02 mg/dL (0.5-1.4) 03/13/23 Blood Urea Nitrogen 11 mg/dL (9-16) 03/13/23 Sodium 137 mmol/L (135-145) 03/13/23 Potassium 3.8 mmol/L (3.3-5.1) 03/13/23 Chloride 101 mmol/L (96-108) 03/13/23 Carbon Dioxide 27 mmol/L (22-29) 03/13/23 Calcium 9.6 mg/dL (8.4-10.2) 03/13/23 AST 96 U/L (5-37) H 03/13/23 ALT 167 U/L (0-40) H 03/13/23 Total Protein 7.0 g/dL (6.5-8.0) 03/13/23 Albumin 3.9 g/dL (3.5-5.0) 03/13/23 [facility] Medical History (Updated 07/14/23 @ 09:[address], LDN) Transaminitis Pure hypercholesterolemia Impaired glucose tolerance Morbid obesity Surgical History History of tooth extraction (~11/2014) Family History Father Hepatitis C Chronic liver failure Mother Renal failure Brother Alive and well Sister Alive and well Son Alive and well Family/Other Substance use disorder Social History Housing: House Alcohol intake: former Patient Tobacco Use Status: Former Tobacco user Tobacco use type: Cigarette e-Cigarette/Vaping Use: Never Used Second Hand Smoke Exposure: No service: No Current occupational status: employed Current occupational exposures/hazards: No Cognitive needs: No Hearing needs: No Vision needs: Yes Assessment & Plan Assessment & Plan (1) 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: Comment: Patient also has morbid obesity with BMI at 46.5 on March 2023, 05/2023 46.1 , 06/2023 at 45.5 Code(s): E11.9 - Type 2 diabetes mellitus without complications Category: Medical Qualifiers: 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 complication status: with hyperglycemia 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 mcfp insulin use: without vermin exterminator use 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 type: type 2 Qualified Code(s): E11.65 - Type 2 diabetes mellitus with hyperglycemia Plan: Wt: 147Kg ( March 2023 ), 144 (06/2023) Est kcal needs as per MSJ: 2600 (40% carb, 30% protein/fat) Est fluid needs as per 30 ml/d: 4300 Est prot per day as per 1 g/kg bw: 144 Recommend fiber intake : 8-10 g per day and gradually increase to 25-28 g per day for women and 35-38 g for men or as tolerated Recommend sodium intake per day : less than 2000 mg Educated patient on: ( R = reviewed V = verbalizes understanding N/R = needs review N/A = not applicable * Food sources of carbohydrate, adequate serving sizes and its role in various health conditions: R * Differences between complex carbohydrates a simple carbohydrates, role of fiber in diet: R * Lean protein sources of foods: R * Differences between types of fats and role in diet (mono on saturated fat fatty acids, saturated fatty acids, trans fats): R, V * Food sources of sodium in salt and healthy modifications for heart health in kidney health: N/R * Vitamins and minerals: R V N/R * Healthy plate method concept: R * Physical activity: Benefits a precaution: N/R * Hypoglycemia protocol (rule of 15): N/R * Dietary prevention of Hyperglycemia: R Patient Instructions: * switch to brown rice * Include at least 1 cup of vegetable at dinner * Continue working on following healthy plate method * Continue with physical activity at least 30 min 3 times a week, keep hydrated by having water with meals/snacks Coding Level of Care Code Nutr Indiv Subseq ([id number]) Diagnoses Type 2 diabetes mellitus with hyperglycemia, without long-term current use of i nsulin E11.65 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 complication status: with hyperglycemia 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 vermin exterminator insulin use: without vermin exterminator use 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 type: type 2 Time Spent (min) 30
== END 2023-07-14 09:33 | disposition home or self-care (01) ==
PROVIDERS: PCP Internal Medicine; Visit Provider Dietitian, Registered
DX: E11.65 Type 2 diabetes mellitus with hyperglycemia (principal)

== ENCOUNTER → 2023-07-14 08:57 | Outpatient (BNVA) | payer OTHER, SELFPAY | PROVIDERS: PCP Internal Medicine; Visit Provider Dietitian, Registered | DX: E11.65 Type 2 diabetes mellitus with hyperglycemia (principal) | CPT/HCPCS: 97803 ==

== ENCOUNTER 2023-07-20 08:12 | Outpatient (AMB) | payer OTHER, SELFPAY ==
[2023-07-20 08:37] VITALS: BP 124/82; PULSE 60; O2SAT 98; BMI 45.2
--- NOTE | 2023-07-20 08:37 | A.OFFPC_ITS ---
Vital Signs 07/20/23 08:37 Height 5 ft 10 in Weight 315 lb BMI 45.2 BP 124/82 Blood Pressure Location Lt brachial Position Sitting Pulse 60 Pulse Source Pulse Oximeter Pulse Oximetry (%) 98 Oxygen Delivery Method Room Air Intake Visit Reasons: dm,depression- needs A1C Belt Sander Required: No Accompanied by: Self / Same As Patient Allergies No Known Allergies [No Known Allergies*] Allergy (Verified 07/20/23 08:50) Medication List - Last Reconciled 07/20/23 by Dawn Kumar MD blood-glucose meter As directed metformin 500 mg PO BID omeprazole 20 mg PO DAILY 30 days sertraline 25 mg PO DAILY 90 days Tobacco use date assessed: 03/17/23 Dental Screening Dental Screen Date: 03/17/23 HPI HPI Comments History of Present Illness Details This is a 43-year-old male with diabetes mellitus type 2, GERD, mild major depression and morbid obesity that comes today for follow-up on his conditions. A1c within goal. GERD stable with PPIs as needed. Depression well controlled with SSRIs. He is morbidly obese with a BMI of 45.2 and declines weight loss surgery because he said he does not be living that. Was advised to diet and exercise to reach BMI goal less than 30. I will start him on Ozempic. Will order lipid panel on microalbumin. No chest pain or shortness on breath. [facility] Medical History Transaminitis Pure hypercholesterolemia Impaired glucose tolerance Morbid obesity Surgical History History of tooth extraction (~11/2014) Family History Father Hepatitis C Chronic liver failure Mother Renal failure Brother Alive and well Sister Alive and well Son Alive and well Family/Other Substance use disorder Social History Housing: House Alcohol intake: former Patient Tobacco Use Status: Former Tobacco user Tobacco use type: Cigarette e-Cigarette/Vaping Use: Never Used Second Hand Smoke Exposure: No service: No Current occupational status: employed Current occupational exposures/hazards: No Cognitive needs: No Hearing needs: No Vision needs: Yes Questionnaire PHQ-9 Over the last 2 weeks, how often have you been bothered by any of the following problems? 1. Little interest or pleasure in doing things: not at all 2. Feeling down, depressed, or hopeless: not at all 3. Trouble falling or staying asleep, or sleeping too much: not at all 4. Feeling tired or having little energy: not at all 5. Poor appetite or overeating: not at all 6. Feeling bad about yourself - or that you are a failure or have let yourself or your family down: not at all 7. Trouble concentrating on things, such as reading the newspaper or watching television: not at all 8. Moving or speaking so slowly that other people could have noticed. Or the opposite - being so fidgety or restless that you have been moving around a lot more than usual: not at all 9. Thoughts that you would be better off or of hurting yourself in some way: not at all Total score: 0 Depression Screening Interpretation: Negative Depression Screening Done: Yes 69062 - PHQ-9 Billing: Yes Source: Developed by Drs. Jag Gamez, Sam Zhou and colleagues, with an educational tom from [employer]. Thrive Questionnaire Date Thrive assessed: 03/17/23 AUDIT C Alcohol Use Questionnaire (AUDIT-C) 1. How often do you have a drink containing alcohol?: Never Total Score: 0 ZACK-7 AMB Questionnaire ZACK-7 Date ZACK - 7 assessed: 03/17/23 Source: Developed by Drs. Jag Gamez, Sam Zhou and colleagues, with an educational tom from [employer]. Review of Systems Const All systems reviewed & are unremarkable except as noted in HPI and below Card Denies chest pain at rest, Denies chest pain with activity, Denies edema, Denies irregular heart rhythm, Denies claudication, Denies dyspnea, Denies dyspnea on exertion, Denies orthopnea, Denies paroxysmal nocturnal dyspnea and Denies slow heart rate Resp Denies cough, Denies dyspnea and Denies dyspnea on exertion GI Denies abdominal pain, Denies change in bowel habits, Denies excessive flatus, Denies nausea and Denies vomiting Denies urinary hesitancy, Denies urinary incontinence and Denies urinary urgency Musc Denies abnormal gait, Denies atrophy, Denies deformity and Denies limited range of motion Neuro Denies abnormal gait and Denies lack of coordination Physical exam (Primary Care) Vital Signs: Last Vital Signs Pulse 60 07/20/23 08:37 BP 124/82 07/20/23 08:37 Pulse Ox 98 07/20/23 08:37 Oxygen Delivery Method Room Air 07/20/23 08:37 BMI result Body Mass Index 45.2 BMI Assessment/Plan discussion: High BMI High, discussed plan: lifestyle, weight reduction, dietary and physical activity Tobacco/Smoking Status: Tobacco use Status Tobacco use date assessed 03/17/23 07/20/23 08:38 Patient Tobacco Use Status Former Tobacco user 07/20/23 08:38 Tobacco use type Cigarette 07/20/23 08:38 e-Cigarette/Vaping Use Never Used 07/20/23 08:38 PHQ-9: PHQ-9 Score PHQ-9: Total score 0 07/20/23 08:50 Depression Screening Interpretation: Negative Thrive Assessment: Date of Thrive Assessment Date Thrive assessed 03/17/23 07/20/23 08:38 Resp Effort & Inspection: normal respiratory effort Auscultation: clear to auscultation bilaterally Cardio Jugular venous distension: no JVD Rate: regular rate Rhythm: regular rhythm Heart sounds: S1 normal heart sound present and S2 normal heart sound present Extrem General: Yes full ROM Results AMB Hemoglobin A1c AMB Hemoglobin A1c 6.5 % Last Edit by Leyla Ragland CMA on 07/20/23 08 :51 Assessment and Plan Assessment & Plan (1) 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: Comment: Patient also has morbid obesity with BMI at 46.5 on March 2023, 05/2023 46.1 , 06/2023 at 45.5 Code(s): E11.9 - Type 2 diabetes mellitus without complications Qualifiers: 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 type: type 2 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 shelter insulin use: without shelter use 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 complication status: with hyperglycemia Qualified Code(s): E11.65 - Type 2 diabetes mellitus with hyperglycemia Plan: Continue metformin. Start Ozempic. A1c goal is equal or less than 7%. (2) Morbid obesity: Code(s): E66.01 - Morbid (severe) obesity due to excess calories Plan: Patient declines weight loss surgery. Start diet and exercise. BMI goal is less than 30. (3) GERD (gastroesophageal reflux disease): Code(s): K21.9 - Gastro-esophageal reflux disease without esophagitis Qualifiers: Esophagitis presence: esophagitis presence not specified Qualified Code(s): K21.9 - Gastro-esophageal reflux disease without esophagitis Plan: Continue PPIs. (4) Mild major depression: Code(s): F32.0 - Major depressive disorder, single episode, mild Plan: Continue sertraline. Orders: Orders AMB Hemoglobin A1c Today Z13.9 - Encounter for screening, unspecified Lipid Panel Today E78.5 - Hyperlipidemia, unspecified Microalbumin, Random (w Creat) Today E11.9 - Type 2 diabetes mellitus without complications Vitamin D 25-OH Total Today E55.9 - Vitamin D deficiency, unspecified Comprehensive [place]. Panel Fast Today E11.65 - Type 2 diabetes mellitus with hyperglycemia Insulin Auto Antibody Today E11.65 - Type 2 diabetes mellitus with hyperglycemia Glutamic acid decarboxylase Ab Today E11.65 - Type 2 diabetes mellitus with hyperglycemia Medications: New semaglutide (Ozempic) for 4 weeks 0.25 mg (0.368 mL) subcut QWEEK 4 weeks 1.472 mL 0RF E11.65 - Type 2 diabetes mellitus with hyperglycemia Refilled omeprazole 20 mg PO DAILY 30 days 30 caps 6RF K21.9 - Gastro-esophageal reflux disease without esophagitis sertraline 25 mg PO DAILY 90 days 90 tabs 1RF F41.1 - Generalized anxiety disorder metformin 500 mg PO BID 60 tabs 2RF Coding Level of Care Code Est Pt Level 4 (44292) Complex EM visit Add On G2211 Diagnoses Type 2 diabetes mellitus with hyperglycemia, without long-term current use of insulin E11.65 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 type: type 2 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
== END 2023-07-20 09:02 | disposition home or self-care (01) ==
PROVIDERS: PCP Internal Medicine; Visit Provider Internal Medicine
DX: E11.65 Type 2 diabetes mellitus with hyperglycemia (principal); E66.01 Morbid (severe) obesity due to excess calories; F32.0 Major depressive disorder, single episode, mild; Z68.42 Body mass index [BMI] 45.0-49.9, adult; K21.9 Gastro-esophageal reflux disease without esophagitis
CPT/HCPCS: 83036; 99214; G2211

== ENCOUNTER 2023-08-25 09:27 | Outpatient (AMB) | payer OTHER, SELFPAY ==
[2023-08-25 09:29] VITALS: BMI 45.1
--- NOTE | 2023-08-25 09:29 | A.OFFVIS_ITS ---
VS Expanded 08/25/23 09:29 Height 5 ft 10 in Weight 314 lb 6.067 oz BMI 45.1 Intake Visit Reasons: T2DM/CONFIRMED Allergies No Known Allergies [No Known Allergies*] Allergy (Verified 07/20/23 08:50) Nutrition Presentation Details: Pt presents for MNT f/u for T2DM with morbid obesity Pt reports working on meal planning, reducing on empty calorie foods and working on following healthy plate method Water: 64 oz/d Planning on weight maintenance for now, going on vacation at the end of the month. physical activity: sedentary fruit: 3-4 /d dairy: 3+/day veg: daily 2 serving protein 20oz/d empty patricia foods: reports working on reduction BG record brought today: 14 d bg average at 126 mg/dl, bg ranging from 117-138 mg/dl vomiting/diarrhea: denies BS Monitoring Most Recent Diabetes Results: Creatinine 1.02 mg/dL (0.5-1.4) 03/13/23 Blood Urea Nitrogen 11 mg/dL (9-16) 03/13/23 Sodium 137 mmol/L (135-145) 03/13/23 Potassium 3.8 mmol/L (3.3-5.1) 03/13/23 Chloride 101 mmol/L (96-108) 03/13/23 Carbon Dioxide 27 mmol/L (22-29) 03/13/23 Calcium 9.6 mg/dL (8.4-10.2) 03/13/23 AST 96 U/L (5-37) H 03/13/23 ALT 167 U/L (0-40) H 03/13/23 Total Protein 7.0 g/dL (6.5-8.0) 03/13/23 Albumin 3.9 g/dL (3.5-5.0) 03/13/23 LUT-Yjkttlx-Sn.Jeor Equation Height: 5 ft 10 in Weight: 314 lb Resting Metabolic Rate: 2322.63 Calculated Activity Level: Sedentary Calories Needed to Maintain Weight: 2787.16 [facility] Medical History Transaminitis Pure hypercholesterolemia Impaired glucose tolerance Morbid obesity Surgical History History of tooth extraction (~11/2014) Family History Father Hepatitis C Chronic liver failure Mother Renal failure Brother Alive and well Sister Alive and well Son Alive and well Family/Other Substance use disorder Social History Housing: House Alcohol intake: former Patient Tobacco Use Status: Former Tobacco user Tobacco use type: Cigarette e-Cigarette/Vaping Use: Never Used Second Hand Smoke Exposure: No service: No Current occupational status: employed Current occupational exposures/hazards: No Cognitive needs: No Hearing needs: No Vision needs: Yes Assessment & Plan Assessment & Plan (1) 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: Comment: Patient also has morbid obesity with BMI at 46.5 on March 2023, 05/2023 46.1 , 06/2023 at 45.5, 08/2023 at 45.1 Code(s): E11.9 - Type 2 diabetes mellitus without complications Category: Medical Qualifiers: 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 type: type 2 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 adjunct faculty for medical 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 insulin use: without adjunct faculty for medical terminology use 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 complication status: with hyperglycemia Qualified Code(s): E11.65 - Type 2 diabetes mellitus with hyperglycemia Plan: Wt: 147Kg ( March 2023 ), 144 (06/2023), 143 kg(08/2023) Est kcal needs as per MSJ: 2600 (40% carb, 30% protein/fat) Est fluid needs as per 30 ml/d: 4300 Est prot per day as per 1 g/kg bw: 144 Recommend fiber intake : 8-10 g per day and gradually increase to 25-28 g per day for women and 35-38 g for men or as tolerated Recommend sodium intake per day : less than 2000 mg Educated patient on: ( R = reviewed V = verbalizes understanding N/R = needs review N/A = not applicable * Food sources of carbohydrate, adequate serving sizes and its role in various health conditions: R * Differences between complex carbohydrates a simple carbohydrates, role of fiber in diet: R * Lean protein sources of foods: R * Differences between types of fats and role in diet (mono on saturated fat fatty acids, saturated fatty acids, trans fats): R, V * Food sources of sodium in salt and healthy modifications for heart health in kidney health: N/R * Vitamins and minerals: R * Healthy plate method concept: R * Physical activity: Benefits a precaution: R * Hypoglycemia protocol (rule of 15): R * Dietary prevention of Hyperglycemia: R Patient Instructions: * Continue working on reducing on portion sizes to promote weight loss following healthy plate method * Engage in physical activity, try chair exercises * weight loss goal 5-7 lbs less by next f/u Coding Level of Care Code Nutr Indiv Subseq (04941) Diagnoses Type 2 diabetes mellitus with hyperglycemia, without long-term current use of insulin E11.65 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 type: type 2 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 usp insulin use: without adjunct faculty for medical terminology use 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 complication status: with hyperglycemia Time Spent (min) 25
[2023-08-25 09:57] VITALS: BMI 45.0
== END 2023-08-25 09:53 | disposition home or self-care (01) ==
PROVIDERS: PCP Internal Medicine; Visit Provider Dietitian, Registered
DX: E11.65 Type 2 diabetes mellitus with hyperglycemia (principal)

== ENCOUNTER → 2023-08-25 09:27 | Outpatient (BNVA) | payer OTHER, SELFPAY | PROVIDERS: PCP Internal Medicine; Visit Provider Dietitian, Registered | DX: E11.65 Type 2 diabetes mellitus with hyperglycemia (principal); E66.01 Morbid (severe) obesity due to excess calories; Z68.42 Body mass index [BMI] 45.0-49.9, adult; Z71.3 Dietary counseling and surveillance | CPT/HCPCS: 97803 ==

== ENCOUNTER 2023-11-25 08:48 | Outpatient (AMB) | payer OTHER, SELFPAY ==
--- NOTE | 2023-11-25 08:56 | A.OFFVIS_ITS ---
VS Expanded 11/25/23 08:58 Height 5 ft 10 in Weight 308 lb 3.3 oz BMI 44.2 Intake Visit Reasons: t2dM, morbid obesity Allergies No Known Allergies [No Known Allergies*] Allergy (Verified 07/20/23 08:50) Nutrition Presentation Details: Pt presents for MNT f/u for T2DM with obesity Pt reports continuing to gradually work on reduction of portion sizes Pt reports limited intake of non starchy vegetables d/t lack of habit physical activity: sedentary etoh/smoking: denies fried foods : 0-2x/m - using air fryer mostly water : 64 oz /day monitors weight at home BG : reports ranging from 95-130s BS Monitoring Most Recent Diabetes Results: Creatinine 1.02 mg/dL (0.5-1.4) 03/13/23 Blood Urea Nitrogen 11 mg/dL (9-16) 03/13/23 Sodium 137 mmol/L (135-145) 03/13/23 Potassium 3.8 mmol/L (3.3-5.1) 03/13/23 Chloride 101 mmol/L (96-108) 03/13/23 Carbon Dioxide 27 mmol/L (22-29) 03/13/23 Calcium 9.6 mg/dL (8.4-10.2) 03/13/23 AST 96 U/L (5-37) H 03/13/23 ALT 167 U/L (0-40) H 03/13/23 Total Protein 7.0 g/dL (6.5-8.0) 03/13/23 Albumin 3.9 g/dL (3.5-5.0) 03/13/23 [facility] Medical History Transaminitis Pure hypercholesterolemia Impaired glucose tolerance Morbid obesity Surgical History History of tooth extraction (~11/2014) Family History Father Hepatitis C Chronic liver failure Mother Renal failure Brother Alive and well Sister Alive and well Son Alive and well Family/Other Substance use disorder Social History Housing: House Alcohol intake: former Patient Tobacco Use Status: Former Tobacco user Tobacco use type: Cigarette e-Cigarette/Vaping Use: Never Used Second Hand Smoke Exposure: No service: No Current occupational status: employed Current occupational exposures/hazards: No Cognitive needs: No Hearing needs: No Vision needs: Yes Assessment & Plan Assessment & Plan (1) 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: Comment: Patient also has morbid obesity with BMI at 46.5 on March 2023,, 44.2 (12/08) Code(s): E11.9 - Type 2 diabetes mellitus without complications Category: Medical Qualifiers: 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 type: type 2 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 intermission coordinator insulin use: without detention use 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 complication status: with hyperglycemia Qualified Code(s): E11.65 - Type 2 diabetes mellitus with hyperglycemia Plan: Wt: 147Kg ( March 2023 )- gradual weight loss via diet modifications , 140 kg ( 12/08) Est kcal needs as per MSJ: 2600 (40% carb, 30% protein/fat) Est fluid needs as per 30 ml/d: 4200 Est prot per day as per 1 g/kg bw: 140 Recommend fiber intake : 8-10 g per day and gradually increase to 25-28 g per day for women and 35-38 g for men or as tolerated Recommend sodium intake per day : less than 2300 mg Educated patient on: ( R = reviewed V = verbalizes understanding N/R = needs review N/A = not applicable * Food sources of carbohydrate, adequate serving sizes and its role in various health conditions: R * Differences between complex carbohydrates a simple carbohydrates, role of fiber in diet: R * fiber rich foods and its role in microbiome/heart health/bg/wt: Reviewed * Lean protein sources of foods: R * Differences between types of fats and role in diet (mono on saturated fat fatty acids, saturated fatty acids, trans fats): R, V * Food sources of sodium in salt and healthy modifications for [facility]: N/R * Vitamins and minerals: R * Healthy plate method concept: R * Physical activity: Benefits a precaution: R * Hypoglycemia protocol (rule of 15): R * Dietary prevention of Hyperglycemia: R, V Patient Instructions: Continue working on including fiber rich foods (vegetables, fruits, whole grains) and trying at least one vegetable a week Continue working on reduction of high fat/starches to continue weight loss Coding Level of Care Code Nutr Indiv Subseq (68591) Diagnoses Type 2 diabetes mellitus with hyperglycemia, without long-term current use of insulin E11.65 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 type: type 2 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 intermission coordinator insulin use: without detention use 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 complication status: with hyperglycemia Time Spent (min) 30
[2023-11-25 08:58] VITALS: BMI 44.2
== END 2023-11-25 09:11 | disposition home or self-care (01) ==
PROVIDERS: PCP Internal Medicine; Visit Provider Dietitian, Registered
DX: E11.65 Type 2 diabetes mellitus with hyperglycemia (principal)

== ENCOUNTER → 2023-11-25 08:48 | Outpatient (BNVA) | payer OTHER, SELFPAY | PROVIDERS: PCP Internal Medicine; Visit Provider Dietitian, Registered | DX: E11.65 Type 2 diabetes mellitus with hyperglycemia (principal); E66.01 Morbid (severe) obesity due to excess calories; Z71.3 Dietary counseling and surveillance; Z68.41 Body mass index [BMI] 40.0-44.9, adult | CPT/HCPCS: 97803 ==

== ENCOUNTER 2023-12-13 08:01 | Outpatient (AMB) | payer OTHER, SELFPAY ==
[2023-12-13 08:13] VITALS: BP 136/82; BMI 43.6
--- NOTE | 2023-12-13 08:13 | A.OFFPC_ITS ---
Vital Signs 12/13/23 08:13 Height 5 ft 10 in Weight 304 lb BMI 43.6 BP 136/82 Blood Pressure Location Lt brachial Position Sitting Intake Visit Reasons: dm Intake Note: Patient here for a follow up DM Probation Officer Required: No Accompanied by: Self / Same As Patient Allergies No Known Allergies [No Known Allergies*] Allergy (Verified 12/13/23 08:14) Medication List - Last Reconciled 12/13/23 by Dawn Kumar MD blood-glucose meter As directed metformin 500 mg PO BID omeprazole 20 mg PO DAILY 30 days semaglutide (Ozempic) 0.25 mg (0.368 mL) subcut QWEEK 4 weeks sertraline 25 mg PO DAILY 90 days Tobacco use date assessed: 03/17/23 Dental Screening Dental Screen Date: 12/13/23 Did you have a dental visit in the last 12 months?: No Did you have a dental problem in the last 6 months where you did not have access to dental care?: No Was dental information given to patient?: Patient has dentist HPI HPI Comments History of Present Illness Details This is 43-year-old male with diabetes mellitus type 2, GERD, morbid obesity and mild major depression that comes today complaining of left foot pain in the heel that happens when he wakes up in the morning and gets relief by walking. This is most likely due to plantar fascitis and exercises were advised. A1c within goal. GERD stable with PPIs. He is morbidly obese with a BMI of 43.6 and declines weight loss surgery. Advised to do diet and exercise to reach BMI goal less than 30. Depression stable with SSRIs. [facility] Medical History (Updated 12/13/23 @ 08:19 by Dawn Kumar MD) Transaminitis Pure hypercholesterolemia Impaired glucose tolerance Morbid obesity Surgical History History of tooth extraction (~11/2014) Family History Father Hepatitis C Chronic liver failure Mother Renal failure Brother Alive and well Sister Alive and well Son Alive and well Family/Other Substance use disorder Social History Housing: House Alcohol intake: former Patient Tobacco Use Status: Former Tobacco user Tobacco use type: Cigarette e-Cigarette/Vaping Use: Never Used Second Hand Smoke Exposure: No service: No Current occupational status: employed Current occupational exposures/hazards: No Cognitive needs: No Hearing needs: No Vision needs: Yes Questionnaire Thrive Questionnaire Date Thrive assessed: 03/17/23 ZACK-7 AMB Questionnaire ZACK-7 Date ZACK - 7 assessed: 03/17/23 Source: Developed by Drs. Jag Gamez, Edda Grace, Sam Sotomayor and colleagues, with an educational tom from [email or web address]. Review of Systems Const All systems reviewed & are unremarkable except as noted in HPI and below Card Denies chest pain at rest, Denies chest pain with activity, Denies edema, Denies irregular heart rhythm, Denies claudication, Denies dyspnea, Denies dyspnea on exertion, Denies orthopnea, Denies paroxysmal nocturnal dyspnea and Denies slow heart rate Resp Denies cough, Denies dyspnea and Denies dyspnea on exertion GI Denies abdominal pain, Denies change in bowel habits, Denies excessive flatus, Denies nausea and Denies vomiting Neuro Denies lack of coordination Physical exam (Primary Care) Vital Signs: Last Vital Signs BP 136/82 12/13/23 08:13 BMI result Body Mass Index 43.6 BMI Assessment/Plan discussion: High BMI High, discussed plan: lifestyle, weight reduction, dietary and physical activity Tobacco/Smoking Status: Tobacco use Status Tobacco use date assessed 03/17/23 07/20/23 08:38 Patient Tobacco Use Status Former Tobacco user 07/20/23 08:38 Tobacco use type Cigarette 07/20/23 08:38 e-Cigarette/Vaping Use Never Used 07/20/23 08:38 Thrive Assessment: Date of Thrive Assessment Date Thrive assessed 03/17/23 07/20/23 08:38 Resp Effort & Inspection: normal respiratory effort Auscultation: clear to auscultation bilaterally Cardio Jugular venous distension: no JVD Rate: regular rate Rhythm: regular rhythm Heart sounds: S1 normal heart sound present and S2 normal heart sound present Extrem General: Yes full ROM Psych Appearance: grossly normal Office Procedures Flu Questionnaire Does the patient have a severe egg allergy?: No Results AMB Hemoglobin A1c AMB Hemoglobin A1c 6.1 % Last Edit by KAELA Schmid on 12/13/23 08:2 0 Immunizations Fluarix Triv [id number] (PF) 45 mcg (15 mcg x 3)/0.5 mL IM syringe Performing Provider: Dawn Kumar MD [facility] Documented (not given) by: KAELA Schmid on 12/13/23 08:15 Reason Not Given: Patient Refused Coding Level of Care Code Est Pt Level 4 (02929) Complex EM visit Add On G2211 Diagnoses Type 2 diabetes mellitus with hyperglycemia, without long-term current use of insulin E11.65 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 type: type 2 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 use: without equipment operator intermodal yard use 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 complication status: with hyperglycemia Mild major depression F32.0 Plantar fasciitis, left M72.2 Morbid obesity E66.01 Gastroesophageal reflux disease, unspecified whether esophagitis present K21.9 Esophagitis presence: esophagitis presence not specified Time Spent (min) 22 Assessment & Plan Assessment & Plan (1) 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: Comment: Patient also has morbid obesity with BMI at 46.5 on March 2023,, 44.2 (12/08) Code(s): E11.9 - Type 2 diabetes mellitus without complications Category: Medical Qualifiers: 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 type: type 2 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 A1c goal is equal or less than 7%. (2) Mild major depression: Code(s): F32.0 - Major depressive disorder, single episode, mild Category: Medical Plan: Continue SSRIs. (3) Plantar fasciitis, left: Code(s): M72.2 - Plantar fascial fibromatosis Category: Medical Plan: X-ray ordered. Advised to do exercises to relieved plantar fascitis. (4) Morbid obesity: Code(s): E66.01 - Morbid (severe) obesity due to excess calories Category: Medical Plan: Advised diet and exercise. BMI goal is less than 30. (5) GERD (gastroesophageal reflux disease): Code(s): K21.9 - Gastro-esophageal reflux disease without esophagitis Category: Medical Qualifiers: Esophagitis presence: esophagitis presence not specified Qualified Code(s): K21.9 - Gastro-esophageal reflux disease without esophagitis Plan: Continue PPIs. Orders: Orders AMB Hemoglobin A1c Today E11.65 - Type 2 diabetes mellitus with hyperglycemia Lipid Panel Today E78.5 - Hyperlipidemia, unspecified Microalbumin, Random (w Creat) Today R80.9 - Proteinuria, unspecified Comprehensive [place]. Panel Fast Today E11.65 - Type 2 diabetes mellitus with hyperglycemia Influenza [id number] Immunization Today Z23 - Encounter for immunization XR foot LT 2V Today M72.2 - Plantar fascial fibromatosis
== END 2023-12-13 08:23 | disposition home or self-care (01) ==
PROVIDERS: PCP Internal Medicine; Visit Provider Internal Medicine
DX: E11.65 Type 2 diabetes mellitus with hyperglycemia (principal); F32.0 Major depressive disorder, single episode, mild; Z68.41 Body mass index [BMI] 40.0-44.9, adult; E66.01 Morbid (severe) obesity due to excess calories; M72.2 Plantar fascial fibromatosis; K21.9 Gastro-esophageal reflux disease without esophagitis

== ENCOUNTER 2023-12-13 08:01 | Outpatient (REF) | payer OTHER, SELFPAY ==
--- NOTE | ~2023-12-13 | XR_ITS ---
EXAMINATION: XR FOOT LEFT 3 VIEWS CLINICAL INFORMATION: Plantar fascial fibromatosis COMPARISON: XR Left foot 04/15/2017 TECHNIQUE: AP, lateral, and oblique views of the left foot. FINDINGS: Alignment is anatomic. No evidence of acute fracture. No erosions. Moderate plantar and large posterior calcaneal spurs. Degenerative changes at the tibiotalar joint with osteophytosis. No significant focal soft tissue swelling. No radiopaque foreign body. XR/XR foot LT 2V IMPRESSION: No acute fracture or dislocation. Electronically signed by: Raquel Finney DO 01/28/2024 08:35 AM EST
[2023-12-13 09:29] LABS: Creatinine Urine 159.98 mg/dL; Microalbum/Creatinine Ratio Ur 8.7 ug/mg cr (<30)
[2023-12-13 09:30] LABS: Alanine Aminotransferase 60 U/L (0-40); Albumin Level 4.2 g/dL (3.5-5.0); Alkaline Phosphatase 74 U/L (39-117); Anion Gap 13 (12-20); Aspartate Amino Transferase 39 U/L (5-37); Bilirubin Total 0.2 mg/dL (0.0-1.0); Blood Urea Nitrogen 18 mg/dL (9-16); Calcium 9.8 mg/dL (8.4-10.2); Carbon Dioxide 27 mmol/L (22-29); Chloride 105 mmol/L (96-108); Cholesterol 222 mg/dL (<200); Estimated Glomerular Filt Rate > 60; Glucose Fasting 123 mg/dL (60-99); HDL Cholesterol 47 mg/dL (>40); LDL Cholesterol Calculated 119 mg/dL (<100); Potassium 4.5 mmol/L (3.3-5.1); Sodium 140 mmol/L (135-145); Total Protein 7.4 g/dL (6.5-8.0); Triglycerides 284 mg/dL (<150)
[2023-12-13 09:47] LABS: Vitamin D 25-OH Total 37.7 ng/mL (>30)
[2023-12-18 20:34] LABS: Glutamic acid decarboxylase Ab <5 IU/mL (<5)
[2023-12-22 23:28] LABS: Insulin Auto Antibody <0.4 U/mL (<0.4)
== END 2023-12-13 08:02 | disposition home or self-care (01) ==
LOC: HO.XRAY 08:01
PROVIDERS: PCP Internal Medicine; Visit Provider Internal Medicine
DX: E11.65 Type 2 diabetes mellitus with hyperglycemia (principal); E78.5 Hyperlipidemia, unspecified; M72.2 Plantar fascial fibromatosis; E55.9 Vitamin D deficiency, unspecified; F32.0 Major depressive disorder, single episode, mild; E66.01 Morbid (severe) obesity due to excess calories; K21.9 Gastro-esophageal reflux disease without esophagitis
CPT/HCPCS: 36415; 73620; 80053; 80061; 82043; 82306; 82570; 83036; 86337; 86341; 90471; 99212

== ENCOUNTER 2024-02-15 07:27 | Outpatient (AMB) | payer OTHER, SELFPAY ==
--- NOTE | 2024-02-15 07:34 | A.OFFPC_ITS ---
Vital Signs 02/15/24 07:35 02/15/24 07:44 Height 5 ft 10 in Weight 314 lb BMI 45.0 BP 132/90 H 132/85 Blood Pressure Location Lt brachial Lt brachial Position Sitting Sitting Intake Visit Reasons: Annual PE Intake Note: Patient here for an annual physical exam Mortgage Protection Specialist Required: No Accompanied by: Self / Same As Patient Allergies No Known Allergies [No Known Allergies*] Allergy (Verified 02/15/24 07:44) Medication List - Last Reconciled 02/15/24 by Dawn Kumar MD atorvastatin 20 mg PO BEDTIME 90 days blood-glucose meter As directed metformin 500 mg PO BID omeprazole 20 mg PO DAILY 30 days sertraline 25 mg PO DAILY 90 days Tobacco use date assessed: 03/17/23 Dental Screening Dental Screen Date: 12/13/23 HPI HPI Comments History of Present Illness Details The patient is a 43-year-old male presenting for his physical exam. He has diabetes mellitus and morbid obesity. His glycated hemoglobin (A1c) was 6.1% in November, indicating good glycemic control. The patient's insurance does not approve Ozempic, a medication he previously discussed, so he is considering Trulicity once a week to aid in managing his diabetes and weight. The patient is also markedly obese, with a Body Mass Index (BMI) significantly above 30. He has a history of major depressive disorder and generalized anxiety disorder, both currently stable with ongoing management. - Discussed potential use of Trulicity f or diabetes management to improve glycemic control. - Discussed lipid control with a target LDL level of less than 70 mg/dL. - Lab work planned in four months to [facility] lipid levels and A1c. -Tdap and flu vaccine declined. [facility] Medical History Transaminitis Pure hypercholesterolemia Impaired glucose tolerance Morbid obesity Surgical History History of tooth extraction (~11/2014) Family History Father Hepatitis C Chronic liver failure Mother Renal failure Brother Alive and well Sister Alive and well Son Alive and well Family/Other Substance use disorder Social History Housing: House Alcohol intake: former Patient Tobacco Use Status: Former Tobacco user Tobacco use type: Cigarette e-Cigarette/Vaping Use: Never Used Second Hand Smoke Exposure: No service: No Current occupational status: employed Current occupational exposures/hazards: No Cognitive needs: No Hearing needs: No Vision needs: Yes Questionnaire PHQ-9 Over the last 2 weeks, how often have you been bothered by any of the following problems? 1. Little interest or pleasure in doing things: not at all 2. Feeling down, depressed, or hopeless: not at all 3. Trouble falling or staying asleep, or sleeping too much: not at all 4. Feeling tired or having little energy: not at all 5. Poor appetite or overeating: not at all 6. Feeling bad about yourself - or that you are a failure or have let yourself or your family down: not at all 7. Trouble concentrating on things, such as reading the newspaper or watching television: not at all 8. Moving or speaking so slowly that other people could have noticed. Or the opposite - being so fidgety or restless that you have been moving around a lot more than usual: not at all 9. Thoughts that you would be better off or of hurting yourself in some way: not at all Total score: 0 Depression Screening Interpretation: Negative Depression Screening Done: Yes 17785 - PHQ-9 Billing: Yes Source: Developed by Drs. Jag Gamez, Edda Grace, Sam Sotomayor and colleagues, with an educational tom from [employer]. Thrive Questionnaire Date Thrive assessed: 03/17/23 I am a: Patient What is your living situation today?: I have a steady place to live Within the past 12 months, did the food you bought not last and you didn't have the money to get more?: Never true Within the past 12 months, did you worry whether your food would run out before you got money to buy more?: Never true Do you have trouble paying for medicines?: No Do you have trouble getting transportation to medical appointments?: No Do you have trouble paying your heating and electricity bill?: No Do you have trouble taking care of your child, family member or friend?: No Do you have trouble with day-to-day activities such as bathing, preparing meals, shopping, managing finances, etc.?: No Are you currently unemployed and looking for a job?: No Are you interested in more education?: No Please select the resources that you would like help with: None Currently or been in a relationship where the following occur: No concerns reported THRIVE Score: 0 AUDIT C Alcohol Use Questionnaire (AUDIT-C) 1. How often do you have a drink containing alcohol?: Never Total Score: 0 Score Reviewed/Action Taken: No ZACK-7 AMB Questionnaire ZACK-7 Date ZACK - 7 assessed: 03/17/23 Feeling nervous, anxious, or on edge: 0 = Not at all Not being able to stop or control worryin = Not at all Worrying too much about different things: 0 = Not at all Trouble relaxin = Not at all Being so restless that it is hard to sit still: 0 = Not at all Becoming easily annoyed or irritable: 0 = Not at all Feeling afraid as if something awful might happen: 0 = Not at all Total ZACK-7 score (0-4 normal; 5-9 mild; 10-14 moderate; 15-21 severe): 0 Source: Developed by Drs. Jag Gamez, Edda Grace, Sam Sotomayor and colleagues, with an educational tom from [employer]. ZACK-7 Assessment Billing ZACK-7 Assessment Tool: ZACK-7 Assessment 28451 Review of Systems Const All systems reviewed & are unremarkable except as noted in HPI and below Card Denies chest pain at rest, Denies chest pain with activity, Denies edema, Denies irregular heart rhythm, Denies claudication, Denies dyspnea, Denies dyspnea on exertion, Denies orthopnea, Denies paroxysmal nocturnal dyspnea and Denies slow heart rate Resp Denies cough, Denies dyspnea and Denies dyspnea on exertion GI Denies abdominal pain, Denies change in bowel habits, Denies excessive flatus, Denies nausea and Denies vomiting Denies urinary hesitancy, Denies urinary incontinence and Denies urinary urgency Physical exam (Primary Care) Vital Signs: Last Vital Signs BP 132/90 H 02/15/24 07:35 BMI result Body Mass Index 45.0 BMI Assessment/Plan discussion: High BMI High, discussed plan: lifestyle, weight reduction, dietary and physical activity Tobacco/Smoking Status: Tobacco use Status Tobacco use date assessed 03/17/23 02/15/24 07:34 Patient Tobacco Use Status Former Tobacco user 02/15/24 07:34 Tobacco use type Cigarette 02/15/24 07:34 e-Cigarette/Vaping Use Never Used 02/15/24 07:34 PHQ-9: PHQ-9 Score PHQ-9: Total score 0 02/15/24 07:34 Depression Screening Interpretation: Negative Thrive Assessment: Date of Thrive Assessment Date Thrive assessed 03/17/23 02/15/24 07:34 Currently or been in a relationship where the following occur: No concerns reported HENMT Head: Yes normal to inspection, Yes normocephalic and Yes atraumatic Ears: external ears normal Eyes General: appearance normal, both eyes and all related structures Eyelids: Yes eyelids normal Conjunctivae: conjunctivae normal Neck Neck: Yes normal visual inspection and Yes supple Resp Effort & Inspection: normal respiratory effort Auscultation: clear to auscultation bilaterally Cardio Jugular venous distension: no JVD Rate: regular rate Rhythm: regular rhythm Heart sounds: S1 normal heart sound present and S2 normal heart sound present GI Inspection: Yes normal to inspection Palpation (GI): Soft to palpation and nontender Auscultation: normal bowel sounds Skin General skin exam: no rashes or lesions noted Neuro General: no focal motor deficits Extrem General: Yes full ROM Psych Appearance: grossly normal Coding Level of Care Code Est Pt Prev Care 40-64y(08360) Diagnoses Physical exam Z00.00 Type 2 diabetes mellitus with hyperglycemia, without long-term current use of insulin E11.65 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 type: type 2 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 terminal superintendent insulin use: without mcfp use 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 complication status: with hyperglycemia Mild major depression F32.0 Morbid obesity E66.01 Additional Codes PHQ-9 - 67540 - PHQ-9 Billing: Yes ([id number]) ZACK-7 Assessment Billing - ZACK-7 Assessment Tool: ZACK-7 Assessment 39528 ([id number]) Time Spent (min) 31 Assessment & Plan Assessment & Plan (1) Physical exam: Code(s): Z00.00 - Encounter for general adult medical examination without abnormal findings Category: Medical (2) 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: Comment: Patient also has morbid obesity with BMI at 46.5 on March 2023,, 44.2 (12/08) Code(s): E11.9 - Type 2 diabetes mellitus without complications Category: Medical Qualifiers: 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 type: type 2 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 mcfp insulin use: without terminal superintendent use 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 complication status: with hyperglycemia Qualified Code(s): E11.65 - Type 2 diabetes mellitus with hyperglycemia (3) Mild major depression: Code(s): F32.0 - Major depressive disorder, single episode, mild Category: Medical (4) Morbid obesity: Code(s): E66.01 - Morbid (severe) obesity due to excess calories Category: Medical Plan - Continue management of diabetes with the addition of Trulicity due to lack of insurance coverage for Ozempic. - Plan for laboratory tests in four months to assess lipid levels and A1c. - Monitor obesity and implement lifestyle modifications aimed at weight reduction. - Continue current management for major depressive disorder and anxiety. Patient was informed and verbally consented to the use of an ambient scribe for clinic note documentation during this visit. During my discussion with the patient, I explained the current status of his diabetes management and our intended use of Trulicity, noting its frequency of administration once a week. I outlined the expected benefits in managing his blood glucose levels. The patient is advised to target an LDL level of less than 70 mg/dL as part of his lipid control strategy. I emphasized the importance of lifestyle changes, including diet and exercise, to address obesity and improve overall health. We also discussed the stability of his major depressive disorder and anxiety, and he agreed to continue with his current mental health management plan. Arrangements were made for lab work in four months to monitor progress. Orders: Orders Lipid Panel 4 Months E78.5 - Hyperlipidemia, unspecified Microalbumin, Random (w Creat) 4 Months R80.9 - Proteinuria, unspecified Comprehensive [place]. Panel Fast 4 Months Z00.00 - Encounter for general adult medical examination without abnormal findings Medications: New dulaglutide (Trulicity) 0.75 mg (0.5 mL) subcut QWEEK 90 days 6.5 mL 0RF E11.65 - Type 2 diabetes mellitus with hyperglycemia Patient Instructions: - Begin Trulicity as the prescribed medication for diabetes management. - Follow a healthy diet and engage in regular physical exercise to manage weight. - Follow up with planned lab work in four months. - Continue current management for depression and anxiety and report any changes in symptoms.
[2024-02-15 07:35] VITALS: BP 132/90; BMI 45.0
[2024-02-15 07:44] VITALS: BP 132/85
== END 2024-02-15 07:55 | disposition home or self-care (01) ==
PROVIDERS: PCP Internal Medicine; Visit Provider Internal Medicine
DX: Z00.00 Encounter for general adult medical examination without abnormal findings (principal); E11.65 Type 2 diabetes mellitus with hyperglycemia; F32.0 Major depressive disorder, single episode, mild; E66.01 Morbid (severe) obesity due to excess calories; Z68.42 Body mass index [BMI] 45.0-49.9, adult

== ENCOUNTER 2024-02-24 08:49 | Outpatient (AMB) | payer OTHER, SELFPAY ==
--- NOTE | 2024-02-24 09:03 | MHC.AMNUTRGE ---
VS Expanded 02/24/24 09:04 Height 5 ft 10 in Weight 313 lb 0.902 oz BMI 44.9 Intake Visit Reasons: T2DM/LVM Allergies No Known Allergies [No Known Allergies*] Allergy (Verified 02/15/24 07:44) Nutrition Presentation Details: Pt presents for MNT f/u for T2DM Pt reports dietary indiscretion over the holiday celebration, gaining 10 lbs since 11/2023 physical activity: sedentary Pt reports BG ranging from 130-140s Pt verbalizes interest in resuming healthier meal pattern BS Monitoring Most Recent Diabetes Results: Microalb/Creat Ratio 8.7 ug/mg cr (<30) 12/13/23 Cholesterol 222 mg/dL (<200) H 12/13/23 HDL Cholesterol 47 mg/dL (>40) 12/13/23 Triglycerides 284 mg/dL (<150) H 12/13/23 Creatinine 0.86 mg/dL (0.5-1.4) 12/13/23 Blood Urea Nitrogen 18 mg/dL (9-16) H 12/13/23 Sodium 140 mmol/L (135-145) 12/13/23 Potassium 4.5 mmol/L (3.3-5.1) 12/13/23 Chloride 105 mmol/L (96-108) 12/13/23 Carbon Dioxide 27 mmol/L (22-29) 12/13/23 Calcium 9.8 mg/dL (8.4-10.2) 12/13/23 AST 39 U/L (5-37) H 12/13/23 ALT 60 U/L (0-40) H 12/13/23 Total Protein 7.4 g/dL (6.5-8.0) 12/13/23 Albumin 4.2 g/dL (3.5-5.0) 12/13/23 [facility] Medical History Transaminitis Pure hypercholesterolemia Impaired glucose tolerance Morbid obesity Surgical History History of tooth extraction (~11/2014) Family History Father Hepatitis C Chronic liver failure Mother Renal failure Brother Alive and well Sister Alive and well Son Alive and well Family/Other Substance use disorder Social History Housing: House Alcohol intake: former Patient Tobacco Use Status: Former Tobacco user Tobacco use type: Cigarette e-Cigarette/Vaping Use: Never Used Second Hand Smoke Exposure: No service: No Current occupational status: employed Current occupational exposures/hazards: No Cognitive needs: No Hearing needs: No Vision needs: Yes Assessment & Plan Assessment & Plan (1) 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: Comment: morbid obesity BMI at 46.5 on March 2023, 44.2 (12/08), 44.9 (02/2024) Code(s): E11.9 - Type 2 diabetes mellitus without complications Category: Medical Qualifiers: 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 type: type 2 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 terminal superintendent insulin use: without terminal superintendent use 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 complication status: with hyperglycemia Qualified Code(s): E11.65 - Type 2 diabetes mellitus with hyperglycemia Plan: Wt: 147Kg ( March 2023 )- gradual weight loss via diet modifications , 140 kg ( 12/08), 142kg (03/11) Est kcal needs as per MSJ: 2600 (40% carb, 30% protein/fat) Est fluid needs as per 30 ml/d: 4200 Est prot per day as per 1 g/kg bw: 140 Recommend fiber intake : 8-10 g per day and gradually increase to 25-28 g per day for women and 35-38 g for men or as tolerated Recommend sodium intake per day : less than 2300 mg Educated patient on: ( R = reviewed V = verbalizes understanding N/R = needs review N/A = not applicable Food sources of carbohydrate, adequate serving sizes and its role in various health conditions: R Differences between complex carbohydrates a simple carbohydrates, role of fiber in diet: R fiber rich foods and its role in microbiome/heart health/bg/wt: Reviewed Lean protein sources of foods: R Differences between types of fats and role in diet (mono on saturated fat fatty acids, saturated fatty acids, trans fats): R, V Food sources of sodium in salt and healthy modifications for heart health in kidney health: N/R Vitamins and minerals: R Healthy plate method concept: R Physical activity: Benefits a precaution: R Hypoglycemia protocol (rule of 15): R Dietary prevention of Hyperglycemia: R, V Patient Instructions: Resume practicing mindful eating Choose fruit/vegetable smoothie in place of pastries Resume walking 20-30 minutes at least 3 times a week Coding Level of Care Code Nutr Indiv Subseq (11095) Diagnoses Type 2 diabetes mellitus with hyperglycemia, without long-term current use of insulin E11.65 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 type: type 2 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 fdc insulin use: without terminal superintendent use 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 complication status: with hyperglycemia Time Spent (min) 30
[2024-02-24 09:04] VITALS: BMI 44.9
== END 2024-02-24 09:18 | disposition home or self-care (01) ==
PROVIDERS: PCP Internal Medicine; Visit Provider Dietitian, Registered
DX: E11.65 Type 2 diabetes mellitus with hyperglycemia (principal)

== ENCOUNTER → 2024-02-24 08:49 | Outpatient (BNVA) | payer OTHER, SELFPAY | PROVIDERS: PCP Internal Medicine; Visit Provider Dietitian, Registered | DX: E11.65 Type 2 diabetes mellitus with hyperglycemia (principal) | CPT/HCPCS: 97803 ==

== ENCOUNTER 2024-05-24 09:03 | Outpatient (AMB) | payer OTHER, SELFPAY ==
[2024-05-24 09:12] VITALS: BMI 44.6
--- NOTE | 2024-05-24 09:12 | A.OFFVIS_ITS ---
VS Expanded 05/24/24 09:12 Height 5 ft 10 in Weight 310 lb 13.628 oz BMI 44.6 Intake Visit Reasons: T2DM Allergies No Known Allergies [No Known Allergies*] Allergy (Verified 02/15/24 07:44) Nutrition Presentation Details: Pt presents for MNT f/u T2DM Reports starting exercise routine 5 x/wk 1 hr food frequency fruits: 1-2 /day milk: 2-3 /day fish : 0-1/wk nuts/seeds: 3-4 x/wk Working on reducing pastries , being mindful take an omega 3 , mvi, vit D reports fasting bg 114-118 mg/dl BS Monitoring Most Recent Diabetes Results: Microalb/Creat Ratio 8.7 ug/mg cr (<30) 12/13/23 Cholesterol 222 mg/dL (<200) H 12/13/23 HDL Cholesterol 47 mg/dL (>40) 12/13/23 Triglycerides 284 mg/dL (<150) H 12/13/23 Creatinine 0.86 mg/dL (0.5-1.4) 12/13/23 Blood Urea Nitrogen 18 mg/dL (9-16) H 12/13/23 Sodium 140 mmol/L (135-145) 12/13/23 Potassium 4.5 mmol/L (3.3-5.1) 12/13/23 Chloride 105 mmol/L (96-108) 12/13/23 Carbon Dioxide 27 mmol/L (22-29) 12/13/23 Calcium 9.8 mg/dL (8.4-10.2) 12/13/23 AST 39 U/L (5-37) H 12/13/23 ALT 60 U/L (0-40) H 12/13/23 Total Protein 7.4 g/dL (6.5-8.0) 12/13/23 Albumin 4.2 g/dL (3.5-5.0) 12/13/23 [facility] Medical History Transaminitis Pure hypercholesterolemia Impaired glucose tolerance Morbid obesity Surgical History History of tooth extraction (~11/2014) Family History Father Hepatitis C Chronic liver failure Mother Renal failure Brother Alive and well Sister Alive and well Son Alive and well Family/Other Substance use disorder Social History Housing: House Alcohol intake: former Patient Tobacco Use Status: Former Tobacco user Tobacco use type: Cigarette e-Cigarette/Vaping Use: Never Used Second Hand Smoke Exposure: No service: No Current occupational status: employed Current occupational exposures/hazards: No Cognitive needs: No Hearing needs: No Vision needs: Yes Assessment & Plan Assessment & Plan (1) 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: Comment: , 4morbid obesity BMI at 46.5 on March 2023, 44.2 (12/08), 44.9 (02/2024), 44.6 (06/09) Code(s): E11.9 - Type 2 diabetes mellitus without complications Category: Medical Qualifiers: 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 type: type 2 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 snf insulin use: without long term care pharmacist use 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 complication status: with hyperglycemia Qualified Code(s): E11.65 - Type 2 diabetes mellitus with hyperglycemia Plan: Wt: 147Kg ( March 2023 )- 140 kg ( 12/08), 142kg (03/11) Est kcal needs as per MSJ: 2600 (40% carb, 30% protein/fat) Est fluid needs as per 30 ml/d: 4200 Est prot per day as per 1 g/kg bw: 140 Recommend fiber intake : 8-10 g per day and gradually increase to 25-28 g per day for women and 35-38 g for men or as tolerated Recommend sodium intake per day : less than 2300 mg Educated patient on: ( R = reviewed V = verbalizes understanding N/R = needs review N/A = not applicable * Food sources of carbohydrate, adequate serving sizes and its role in various health conditions: R * Differences between complex carbohydrates a simple carbohydrates, role of fiber in diet: R * fiber rich foods and its role in microbiome/heart health/bg/wt: Reviewed * Lean protein sources of foods: R * Differences between types of fats and role in diet (mono on saturated fat fatty acids, saturated fatty acids, trans fats): R, V * Food sources of sodium in salt and healthy modifications for heart health in kidney health: N/R * Vitamins and minerals: R * Healthy plate method concept: R * Physical activity: Benefits a precaution: R * Hypoglycemia protocol (rule of 15): R * Dietary prevention of Hyperglycemia: R, V Patient Instructions: Continue following healthy plate method, continue reducing on empty calorie foods, choose a fruit instead Choose foods with fiber/water :cucumbers, celery, apple, berries as examples, see list of options and recipes Coding Level of Care Code Nutr Indiv Subseq (48658) Diagnoses Type 2 diabetes mellitus with hyperglycemia, without long-term current use of insulin E11.65 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 type: type 2 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 long term care pharmacist insulin use: without long term care pharmacist use 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 complication status: with hyperglycemia Time Spent (min) 20
--- OUTSIDE RECORDS SUMMARY | 2024-05-24 09:34 | XMS_ITS | Clinical Summary ---
Author Organization [facility] Address [address] [place] [address] [place] [phone] Phone Care Team Providers Care Medical Physics Teacher Name Role Phone Dawn Childress MD Primary Care Provider [phone] Allergies No known active allergies Medications omeprazole (PriLOSEC) [address] capsule Take 1 capsule by mouth 1 (one) time each day Active atorvastatin (LIPITOR) 10 MG tablet Take 10 mg by mouth 1 (one) time each day in the evening 09/20/2021 Active Active Problems Problem Noted Date Diagnosed Date Edema of lower extremity 09/24/2020 Family History Relation Status Comments Father Mother Alive Social History Tobacco Use Types Packs/Day Years Used Date Smoking Tobacco: Former Smokeless Tobacco: Never Tobacco Cessation:Counseling Given: Not Answered Comments:Smoking History Info:Every day Alcohol Use Standard Drinks/Week Comments No 0 (1 standard drink = 0.6 oz pur e alcohol) Sex and Gender Information Value Date Recorded Sex Assigned at Not on file Legal Sex Male 4:51 PM EST Gender Identity Not on file Sexual Orientation Not on file Last Filed Vital Signs Vital Sign Reading Time Taken Comments Blood Pressure 120/65 10/13/2021 2:58 PM EDT Pulse 86 10/13/2021 2:58 PM EDT Temperature - - Respiratory Rate - - Oxygen Saturation 98% 10/13/2021 2:58 PM EDT Inhaled Oxygen Concentration - - Weight 150 kg (331 lb 9.6 oz) 10/13/2021 2:58 PM EDT Height 175.3 cm (5' 9 ) 09/08/2018 12:00 PM EDT Body Mass Index 48.97 09/08/2018 12:00 PM EDT Plan of Treatment Health Maintenance Due Date Last Done Comments Hepatitis B Vaccine (1 of 3 - 19+ 3-dose series) 06/29/1998 Influenza Vaccine (Season Ended) 2024 Pneumococcal Vaccine: Pediat rics (0 to 5 Years) and At-Risk Patients (6 to 64 Years) Aged Out No longer eligi ble based on patient's age to complete this topic Insurance Care Teams Medical Physics Teacher Relationship Specialty Start Date End Date Dawn Childress MD [address] [place] [address] PCP - General 02/26/20
== END 2024-05-24 09:28 | disposition home or self-care (01) ==
LOC: HO.ENCR 09:04
PROVIDERS: PCP Internal Medicine; Visit Provider Dietitian, Registered
DX: E11.65 Type 2 diabetes mellitus with hyperglycemia (principal)

== ENCOUNTER → 2024-05-24 09:03 | Outpatient (BNVA) | payer OTHER, SELFPAY | PROVIDERS: PCP Internal Medicine; Visit Provider Dietitian, Registered | DX: E11.65 Type 2 diabetes mellitus with hyperglycemia (principal) | CPT/HCPCS: 97803 ==

== ENCOUNTER 2024-07-04 11:03 | Outpatient (AMB) | payer OTHER, SELFPAY ==
[2024-07-04 11:06] VITALS: BP 128/80; BMI 43.8
--- NOTE | 2024-07-04 11:06 | A.OFFPC_ITS ---
Vital Signs 07/04/24 11:06 Height 5 ft 10 in Weight 305 lb BMI 43.8 BP 128/80 Blood Pressure Location Lt brachial Position Sitting Intake Visit Reasons: DM FOLLOW UP Intake Note: Patient here for a follow up DM Core Analyst Required: No Accompanied by: Self / Same As Patient Allergies No Known Allergies [No Known Allergies*] Allergy (Verified 07/04/24 11:14) Medication List - Last Reconciled 07/04/24 by Dawn Kumar MD atorvastatin 20 mg PO BEDTIME 90 days blood-glucose meter As directed dulaglutide (Trulicity) 0.75 mg (0.5 mL) subcut QWEEK 90 days metformin 500 mg PO BID omeprazole 20 mg PO DAILY 30 days sertraline 25 mg PO DAILY 90 days Tobacco use date assessed: 07/04/24 Dental Screening Dental Screen Date: 07/04/24 Did you have a dental visit in the last 12 months?: No Did you have a dental problem in the last 6 months where you did not have access to dental care?: No Was dental information given to patient?: Patient has dentist HPI HPI Comments History of Present Illness Details The patient is a 44-year-old male presenting with follow-up for chronic conditions, including Type 2 Diabetes Mellitus. Recent laboratory results indicate successful control of blood glucose with an HbA1c of 6%. The patient's morbid obesity remains an ongoing challenge; however, there has been a noted reduction in weight attributed to lifestyle modifications such as dietary improvements and exercise. The patient's therapeutic regimen includes Trulicity, administered weekly, and Metformin 500 mg twice daily for diabetes, with fair control as evidenced by current glucose levels. He reports no current symptoms such as chest pain or dyspnea. Hyperlipidemia is addressed with Atorvastatin 20 mg, with scheduled lab tests in four months. GERD symptoms are managed with Omeprazole 20 mg once daily. Depression with concurrent anxiety appears to be well-controlled with current treatment using Sertraline 25 mg, as the patient reports improvement in their overall mental health status. No new allergies to medications have been reported. [facility] Medical History Transaminitis Pure hypercholesterolemia Impaired glucose tolerance Morbid obesity Surgical History History of tooth extraction (~11/2014) Family History Father Hepatitis C Chronic liver failure Mother Renal failure Brother Alive and well Sister Alive and well Son Alive and well Family/Other Substance use disorder Social History Housing: House Alcohol intake: former Patient Tobacco Use Status: Former Tobacco user Tobacco use type: Cigarette e-Cigarette/Vaping Use: Never Used Second Hand Smoke Exposure: No service: No Current occupational status: employed Current occupational exposures/hazards: No Cognitive needs: No Hearing needs: No Vision needs: Yes Questionnaire PHQ-9 Over the last 2 weeks, how often have you been bothered by any of the following problems? 1. Little interest or pleasure in doing things: not at all 2. Feeling down, depressed, or hopeless: not at all 3. Trouble falling or staying asleep, or sleeping too much: not at all 4. Feeling tired or having little energy: several days 5. Poor appetite or overeating: not at all 6. Feeling bad about yourself - or that you are a failure or have let yourself or your family down: not at all 7. Trouble concentrating on things, such as reading the newspaper or watching television: not at all 8. Moving or speaking so slowly that other people could have noticed. Or the opposite - being so fidgety or restless that you have been moving around a lot more than usual: not at all 9. Thoughts that you would be better off or of hurting yourself in some way: not at all Total score: 1 Depression Screening Interpretation: Negative Depression Screening Done: Yes 00299 - PHQ-9 Billing: Yes Source: Developed by Drs. Jag Gamez, Edda Grace, Sam Sotomayor and colleagues, with an educational tom from [employer]. Thrive Questionnaire Date Thrive assessed: 07/04/24 I am a: Patient What is your living situation today?: I have a steady place to live Within the past 12 months, did the food you bought not last and you didn't have the money to get more?: Never true Within the past 12 months, did you worry whether your food would run out before you got money to buy more?: Never true Do you have trouble paying for medicines?: No Do you have trouble getting transportation to medical appointments?: No Do you have trouble paying your heating and electricity bill?: No Do you have trouble taking care of your child, family member or friend?: No Do you have trouble with day-to-day activities such as bathing, preparing meals, shopping, managing finances, etc.?: No Are you currently unemployed and looking for a job?: No Are you interested in more education?: No Please select the resources that you would like help with: None Currently or been in a relationship where the following occur: No concerns reported THRIVE Score: 0 AUDIT C Alcohol Use Questionnaire (AUDIT-C) 1. How often do you have a drink containing alcohol?: Never Total Score: 0 Score Reviewed/Action Taken: No ZACK-7 AMB Questionnaire ZACK-7 Date ZACK - 7 assessed: 07/04/24 Feeling nervous, anxious, or on edge: 0 = Not at all Not being able to stop or control worryin = Not at all Worrying too much about different things: 0 = Not at all Trouble relaxin = Not at all Being so restless that it is hard to sit still: 0 = Not at all Becoming easily annoyed or irritable: 0 = Not at all Feeling afraid as if something awful might happen: 0 = Not at all Total ZACK-7 score (0-4 normal; 5-9 mild; 10-14 moderate; 15-21 severe): 0 Source: Developed by Drs. Jag Gamez, Edda Grace, Sam Sotomayor and colleagues, with an educational tom from [employer]. ZACK-7 Assessment Billing ZACK-7 Assessment Tool: ZACK-7 Assessment 19547 Review of Systems Const All systems reviewed & are unremarkable except as noted in HPI and below ENT Denies change in voice, Denies nasal discharge and Denies sinus pain Card Denies chest pain at rest, Denies chest pain with activity, Denies edema, Denies irregular heart rhythm, Denies claudication, Denies dyspnea, Denies dyspnea on exertion, Denies orthopnea, Denies paroxysmal nocturnal dyspnea and Denies slow heart rate Resp Denies cough, Denies dyspnea and Denies dyspnea on exertion GI Denies abdominal pain, Denies change in bowel habits, Denies excessive flatus, Denies nausea and Denies vomiting Denies urinary hesitancy, Denies urinary incontinence and Denies urinary urgency Physical exam (Primary Care) Vital Signs: Last Vital Signs BP 128/80 07/04/24 11:06 BMI result Body Mass Index 43.8 BMI Assessment/Plan discussion: High BMI High, discussed plan: lifestyle, weight reduction, dietary and physical activity Tobacco/Smoking Status: Tobacco use Status Tobacco use date assessed 07/04/24 07/04/24 11:15 Patient Tobacco Use Status Former Tobacco user 07/04/24 11:15 Tobacco use type Cigarette 07/04/24 11:15 e-Cigarette/Vaping Use Never Used 07/04/24 11:15 PHQ-9: PHQ-9 Score PHQ-9: Total score 1 07/04/24 11:18 Depression Screening Interpretation: Negative Thrive Assessment: Date of Thrive Assessment Date Thrive assessed 07/04/24 07/04/24 11:15 Currently or been in a relationship where the following occur: No concerns reported Resp Effort & Inspection: normal respiratory effort Auscultation: clear to auscultation bilaterally Cardio Jugular venous distension: no JVD Rate: regular rate Rhythm: regular rhythm Heart sounds: S1 normal heart sound present and S2 normal heart sound present Extrem General: Yes full ROM Results AMB Hemoglobin A1c AMB Hemoglobin A1c 6.0 % Last Edit by KAELA Schmid on 07/04/24 11:1 8 Results Reviewed Results Reviewed: Laboratory Last Values Hgb A1c (Clinic) 6.0 % (4.0-6.0) 07/04/24 11:05 Coding Level of Care Code Est Pt Level 4 (84028) Complex EM visit Add On G2211 Diagnoses Mild major depression F32.0 Type 2 diabetes mellitus with hyperglycemia, without long-term current use of insulin E11.65 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 type: type 2 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 [facility] insulin use: without [facility] use 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 complication status: with hyperglycemia ZACK (generalized anxiety disorder) F41.1 Pure hypercholesterolemia E78.00 Gastroesophageal reflux disease, unspecified whether esophagitis present K21.9 Esophagitis presence: esophagitis presence not specified Morbid obesity E66.01 Additional Codes ZACK-7 Assessment Billing - ZACK-7 Assessment Tool: ZACK-7 Assessment 79715 ([id number]) PHQ-9 - 31522 - PHQ-9 Billing: Yes ([id number]) Time Spent (min) 23 Assessment & Plan Assessment & Plan (1) Mild major depression: Code(s): F32.0 - Major depressive disorder, single episode, mild Category: Medical (2) 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: Comment: , 4morbid obesity BMI at 46.5 on March 2023, 44.2 (12/08), 44.9 (02/2024), 44.6 (06/09) Code(s): E11.9 - Type 2 diabetes mellitus without complications Category: Medical Qualifiers: 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 type: type 2 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 [facility] use 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 complication status: with hyperglycemia Qualified Code(s): E11.65 - Type 2 diabetes mellitus with hyperglycemia (3) ZACK (generalized anxiety disorder): Code(s): F41.1 - Generalized anxiety disorder Category: Medical (4) Pure hypercholesterolemia: Code(s): E78.00 - Pure hypercholesterolemia, unspecified Category: Medical (5) GERD (gastroesophageal reflux disease): Code(s): K21.9 - Gastro-esophageal reflux disease without esophagitis Category: Medical Qualifiers: Esophagitis presence: esophagitis presence not specified Qualified Code(s): K21.9 - Gastro-esophageal reflux disease without esophagitis (6) Morbid obesity: Code(s): E66.01 - Morbid (severe) obesity due to excess calories Category: Medical Plan The patient's current regimen for Type 2 Diabetes Mellitus, including Trulicity and Metformin, is effective as indicated by a Hemoglobin A1c of 6%. The patient will continue with this treatment plan alongside medications for hyperlipidemia Atorvastatin), GERD Omeprazole), and depression with anxiety Sertraline). We scheduled laboratory tests in four months to monitor lipid levels and reinforce the importance of lifestyle changes for weight management, as these have contributed to recent weight loss. We also encouraged the patient to maintain the approach towards improved nutrition and physical activity. Patient was informed and verbally consented to the use of an ambient scribe for clinic note documentation during this visit. I discussed with the patient the success of the current management plan for Type 2 Diabetes Mellitus, highlighting the controlled A1c level at 6%. We reviewed the significance of continuing the established medication regimen, emphasizing the benefits of sustained medication adherence and lifestyle modifications. I addressed the necessity of periodic laboratory evaluations, particularly for lipid management, scheduled for the upcoming four months. The patient noted an improved mental health status with current treatment, which we agreed to maintain. Finally, we discussed ongoing efforts in dietary adjustments and increased exercise, encouraging persistence in these lifestyle changes to address morbid obesity. Orders: Orders Lipid Panel 4 Months E78.5 - Hyperlipidemia, unspecified Microalbumin, Random (w Creat) 4 Months R80.9 - Proteinuria, unspecified Comprehensive [place]. Panel Fast 4 Months E66.01 - Morbid (severe) obesity due to excess calories AMB Hemoglobin A1c Today E11.65 - Type 2 diabetes mellitus with hyperglycemia Patient Instructions: - Continue taking medications as prescribed: Trulicity weekly, Metformin 500 mg twice daily, Atorvastatin 20 mg daily, Omeprazole 20 mg daily, and Sertraline 25 mg daily. - Maintain a balanced diet and exercise regularly to support weight management. - Return for laboratory tests in four months for further evaluation. - Monitor for any new symptoms or reactions to medication and report them promptly. - Maintain close follow-up on your mental health status and contact us if concerns arise.
--- OUTSIDE RECORDS SUMMARY | 2024-07-04 12:21 | XMS_ITS | Clinical Summary ---
Author Organization [facility] Address [address] [place] [address] [place] [phone] Phone Care Team Providers Care Lead Teller Name Role Phone Dawn Childress MD Primary Care Provider [phone] Allergies No known active allergies Medications omeprazole [...] Influenza Vaccine (Season Ended) 2024 Pneumococcal Vaccine: Peds ( 0 to 5 Years) and At-Risk Patients (6 to 49 Years) Aged Out No longer eligible b ased on patient's age to complete this topic Insurance Care Teams Lead Teller Relationship Specialty Start Date End Date Dawn Childress MD [address] [place] [address] PCP - General 02/26/20
== END 2024-07-04 11:21 | disposition home or self-care (01) ==
LOC: HO.HMCH 11:04
PROVIDERS: PCP Internal Medicine; Visit Provider Internal Medicine
DX: E11.65 Type 2 diabetes mellitus with hyperglycemia (principal); E66.01 Morbid (severe) obesity due to excess calories; Z68.41 Body mass index [BMI] 40.0-44.9, adult; F32.0 Major depressive disorder, single episode, mild; F41.1 Generalized anxiety disorder; E78.00 Pure hypercholesterolemia, unspecified; K21.9 Gastro-esophageal reflux disease without esophagitis

== ENCOUNTER → 2024-07-04 11:03 | Outpatient (BNVA) | payer OTHER, SELFPAY | PROVIDERS: PCP Internal Medicine; Visit Provider Internal Medicine | DX: E11.65 Type 2 diabetes mellitus with hyperglycemia (principal); K21.9 Gastro-esophageal reflux disease without esophagitis; F32.0 Major depressive disorder, single episode, mild; F41.1 Generalized anxiety disorder; E80.0 Hereditary erythropoietic porphyria; E66.01 Morbid (severe) obesity due to excess calories; R80.9 Proteinuria, unspecified; E78.5 Hyperlipidemia, unspecified; Z68.41 Body mass index [BMI] 40.0-44.9, adult; Z79.84 Long term (current) use of oral hypoglycemic drugs; Z79.899 Other long term (current) drug therapy | CPT/HCPCS: 83036; 96127; 99212 ==

== ENCOUNTER 2024-11-23 08:54 | Outpatient (AMB) | payer OTHER, SELFPAY ==
[2024-11-23 09:04] VITALS: BMI 43.8
--- NOTE | 2024-11-23 09:04 | A.OFFVIS_ITS ---
VS Expanded 11/23/24 09:04 Height 5 ft 10 in Weight 305 lb 1.916 oz BMI 43.8 Intake Visit Reasons: T2DM Allergies No Known Allergies (No Known Allergies*) Allergy (Verified 07/04/24 11:14) Medication List - Last Reconciled 11/23/[address], LDN ascorbate calcium (vitamin C) 500 mg PO DAILY atorvastatin 20 mg PO BEDTIME 90 days blood-glucose meter As directed cholecalciferol (vitamin D3) 25 mcg PO DAILY dulaglutide (Trulicity) 0.75 mg (0.5 mL) subcut QWEEK 90 days metformin 500 mg PO BID multivitamin 1 tab PO DAILY omeprazole 20 mg PO DAILY 30 days sertraline 25 mg PO DAILY 90 days Nutrition Presentation Details: Pt presents for MNT for T2DM Pt reports monitoring BG in the fasting state and BG ranging from 100-125 mg/dl Pt reports continuing to work on diet modifications Physical activity has lessened but looking forward to restarting food frequency fish : 0-1x/wk fruits: 2-3 /d vegetables: 3 , 3 x/wk dairy: 4 servings/d beverages: water, diluted juices with water ,no sodas eoth- denies smoking- denies Takes a daily MVI , omega 3 , vitamin d , vitamin C GRQ-[id number]-It.Jeor Equation Height: 5 ft 10 in Weight: 305 lb Resting Metabolic Rate: 2276.92 Calculated Activity Level: Sedentary Calories Needed to Maintain Weight: 2732.30 PFSH Medical History Transaminitis Pure hypercholesterolemia Impaired glucose tolerance Morbid obesity Surgical History History of tooth extraction (~11/2014) Family History Father Hepatitis C Chronic liver failure Mother Renal failure Brother Alive and well Sister Alive and well Son Alive and well Family/Other Substance use disorder Social History Housing: House Alcohol intake: former Patient Tobacco Use Status: Former Tobacco user Tobacco use type: Cigarette e-Cigarette/Vaping Use: Never Used Second Hand Smoke Exposure: No service: No Current occupational status: employed Current occupational exposures/hazards: No Cognitive needs: No Hearing needs: No Vision needs: Yes Assessment & Plan Assessment & Plan (1) 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: Comment: BMI 46 in 03/2023, 44.2 (12/08), 44.9 (02/2024), 43.8 (12/09) Code(s): E11.9 - Type 2 diabetes mellitus without complications Category: Medical Qualifiers: 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 type: type 2 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 buttermaker helper use 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 complication status: with hyperglycemia Qualified Code(s): E11.65 - Type 2 diabetes mellitus with hyperglycemia Plan: Wt: 147Kg ( March 2023 )- 140 kg ( 12/08), 142kg (03/11), 138 (12/09) Est kcal needs as per MSJ: 2600 (40% carb, 30% protein/fat) Est fluid needs as per 30 ml/d: 4100 Est prot per day as per 1 g/kg bw: 140 Recommend fiber intake : 8-10 g per day and gradually increase to 25-28 g per day for women and 35-38 g for men or as tolerated Recommend sodium intake per day : less than 2300 mg Educated patient on: ( R = reviewed V = verbalizes understanding N/R = needs review N/A = not applicable * Food sources of carbohydrate, adequate serving sizes and its role in various health conditions: R * Differences between complex carbohydrates a simple carbohydrates, role of fiber in diet: R , V * fiber rich foods and its role in microbiome/heart health/bg/wt: Reviewed , V * Lean protein sources of foods: R * Differences between types of fats and role in diet (mono on saturated fat fatty acids, saturated fatty acids, trans fats): R, V * Food sources of sodium in salt and healthy modifications for heart health in kidney health: R * Vitamins and minerals: R * Healthy plate method concept: R * Physical activity: Benefits a precaution: R * Hypoglycemia protocol (rule of 15): R * Dietary prevention of Hyperglycemia: R, V * consult with your doctor regarding medications for further asessment: R Patient Instructions: Mindful of hidden fats- cook with less fat (butter, oils, sauces, gravies, , re move skins, visible fats, ) continue working on choosing a fruit in place of pastries (reducing on sat'd fats) keep hydrated by having water iwth meals/snacks continue to monitor blood sugar, alternate between fasting and 2 hours after a meal (fasting blood sugar goal less than 130 and 2 hours after a meal less than 180 unless otherwise specifed by your doctor Coding Level of Care Code Nutr Indiv Subseq (95060) Diagnoses Type 2 diabetes mellitus with hyperglycemia, without long-term current use of insulin E11.65 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 type: type 2 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
[2024-11-23 09:37] VITALS: BMI 43.8
== END 2024-11-23 09:20 | disposition home or self-care (01) ==
LOC: HO.ENCR 08:54
PROVIDERS: PCP Internal Medicine; Visit Provider Dietitian, Registered
DX: E11.65 Type 2 diabetes mellitus with hyperglycemia (principal)

== ENCOUNTER → 2024-11-23 08:54 | Outpatient (BNVA) | payer OTHER, SELFPAY | PROVIDERS: PCP Internal Medicine; Visit Provider Dietitian, Registered | DX: E11.65 Type 2 diabetes mellitus with hyperglycemia (principal) | CPT/HCPCS: 97803 ==